=== PATIENT | female | born 1970 | race Caucasian/White ===

== ENCOUNTER 2021-04-19 13:14 | Inpatient (IN) | payer OTHER, SELFPAY ==
[2021-04-19] VITALS (31 sets, daily range): BP systolic 110–161; BP diastolic 65–94; PULSE 58–95; RESP 20–54; TEMP 36.4–37.3; O2SAT 86–100; BMI 23.1; BMI 24.1
--- NOTE | 2021-04-19 13:21 | DI.RAD.S_ITS ---
PROCEDURE: XR CHEST 1V INDICATIONS: flu-like symptoms TECHNIQUE: One view of the chest was acquired. COMPARISON: None. FINDINGS: Surgical changes and devices: None. Lungs and pleura: Bilateral mid and lower lung alveolar opacities. No effusion or pneumothorax. Mediastinum: Mediastinal contours appear normal. Heart size is normal. Bones and chest wall: No suspicious bony lesions. Overlying soft tissues appear unremarkable. IMPRESSION: 1. Bilateral alveolar opacities suggestive of pneumonia without pleural effusion. Dictated by: Clarissa Rob M.D. on 04/19/2021 at 14:17 Approved by: Clarissa Rob M.D. on 04/19/2021 at 14:17
--- NOTE | 2021-04-19 13:28 | ED_ITS ---
HPI - SOB/Dyspnea General Chief Complaint: Shortness of Breath/Dyspnea Stated Complaint: SOB Time Seen by Provider: 04/19/21 13:27 Source: patient and EMS Mode of arrival: EMS Limitations: no limitations History of Present Illness HPI Narrative: This is a 50-year-old female comes in with complaint of shortness of breath and chest pain. Patient has had about a week of symptoms she initially had temperatures about 101 or 102 F. She had some congestion and then had increasing shortness of breath. She states it is painful for her to take a deep breath in her anterior chest. She has not had any nausea or vomiting. She has not any diarrhea constipation. No urinary symptoms. No swelling her extremities. She is normally on fluvoxamine and levothyroxine. Patient states she has some reactive airway history but not a formal asthma diagnosis. No prior surgeries. No tobacco, occasional alcohol, no illicit. Her was recently ill with an upper respiratory illness he tested positive for COVID. She is unvaccinated. She has recently been on doxycycline as well as using budesonide inhaled and possibly oral dexamethasone. Related Data Home Medications Medication Instructions Recorded Confirmed albuterol sulfate 90 mcg/actuation 2 inh INHALATION Q6HR PRN 04/19/21 04/19/21 aerosol inhaler doxycycline hyclate 100 mg tablet 100 mg PO BID 04/19/21 04/19/21 fluvoxamine 50 mg tablet 50 mg PO BID 04/19/21 04/19/21 levothyroxine 50 mcg tablet 50 mcg PO QAM 04/19/21 04/19/21 (Synthroid) liothyronine 5 mcg tablet 5 mcg PO BID 04/19/21 04/19/21 Allergies Allergy/AdvReac Type Severity Reaction Status Date / Time cephalexin [From KEFLEX] Allergy Unknown Unverified 07/11/17 12:44 erythromycin base Allergy Unknown Verified 04/19/21 13:32 hydrocodone [From Vicodin] Allergy Unknown Verified 04/19/21 13:32 Iodine and Iodide Containing Allergy Unknown Verified 04/19/21 14:53 Produc [IODINE AND IODIDE CONTAINING PRODUC] latex [LATEX] Allergy Unknown Verified 04/19/21 14:53 Review of Systems Review of Systems ROS Unobtainable: All systems reviewed & are unremarkable except as noted in HPI and below Patient History Medical History Fibromyalgia Hypothyroid Reactive airway disease Social History household members: spouse and family Smoking Status: Never smoker Smoking Status: Never smoker alcohol intake frequency: 0-2 drinks per day Substance Use Type: does not use Exam Narrative Exam Narrative: GEN: well nourished, well appearing thin female, alert and oriented x 3, patient appears to be in mild distress. HEENT: Atraumatic, pupils are equal round reactive to light, extraocular movements are intact, nares are clear HEART: Regular rate and rhythm without murmur, clicks, rubs. LUNGS:Lungs has decreased breath sounds on the right lower lobe positive for tachypnea, no wheezes, rales, crackles, chest moves symmetrically, patient speaks in 2-3 word sentences. ABD:bowel sounds normal, soft, non-tender, no guarding, rebound, rigidity, no masses noted, no hepatosplenomegaly :No CVA tenderness MSCL: Non-tender, swelling bilateral lower extremities. NEURO:CN 2-12 intact, sensation normal SKIN: No rash, erythema or other skin changes noted. Initial Vital Signs Initial Vital Signs: Vital Signs Temperature 97.9 F 04/19/21 13:20 Pulse Rate 80 04/19/21 13:20 Respiratory Rate 40 H 04/19/21 13:20 Blood Pressure 134/88 04/19/21 13:20 Pulse Oximetry 86 L 04/19/21 13:20 Course Orders Ordered: ED Orders 04/19/21 13:02 C-Reactive Protein Quant Stat Complete Blood Count AUTO DIFF Stat Comprehensive Metabolic Panel Stat D Dimer Stat Ferritin Stat Lactate (Lactic Acid) Stat Lactate Dehydrogenase Stat NT-proBNP (BNP-Adult 18+) Stat Procalcitonin Stat Troponin & CK Cardiac Panel Stat 04/19/21 13:15 COVID19 -Nasal swab/Pre-Proc Stat 04/19/21 13:20 Arterial Blood Gas Stat 04/19/21 13:21 XR chest 1V Stat 04/19/21 13:32 EKG-12 Lead Stat 04/19/21 13:55 Blood Culture Stat 04/19/21 14:31 High flow/High humidity nasal NOW Acetaminophen (Acetaminophen 325 Mg Tablet) 650 mg PO Q6HR PRN PRN Reason: Fever/Mild Pain (1-3) Albuterol/Ipratropium (Albuterol/Ipratropium 3 Ml Ampul) 3 ml INH RTQ4HR PRN PRN Reason: Shortness Of Breath Dexamethasone (Dexamethasone 10 Mg/Ml Vial) 6 mg IV DAILY JESUS Enoxaparin Sodium (Enoxaparin 40 Mg/0.4 Ml Syringe) 40 mg SUBCUT BID JESUS Stored In Pharmacy 0 each PO PRN PRN PRN Reason: . Ondansetron HCl (Ondansetron 4 Mg/2 Ml Inj) 4 mg IV Q8HR PRN PRN Reason: Nausea And Vomiting Sodium Chloride (Sodium Chloride 0.9% Flush) 10 ml IV PRN PRN PRN Reason: Flush Sodium Chloride (Sodium Chloride 0.9% Flush) 10 ml IV BID JESUS Discontinued Medications Albuterol (Albuterol 2.5 Mg/3 Ml Neb (Adult)) 2.5 mg INH NOW ONE Stop: 04/19/21 15:42 Last Admin: 04/19/21 15:55 Dose: 2.5 mg Documented by: RASHAUN Dexamethasone (Dexamethasone 10 Mg/Ml Vial) 6 mg IV NOW ONE Stop: 04/19/21 15:05 Last Admin: 04/19/21 15:12 Dose: 6 mg Documented by: JESUS Consultations Consultation #1: Dr. Dickey accepts for inpatient admission. We did discuss at this time patient is currently refusing remdesivir. She was interested in monoclonal antibodies but I was unsure if patient would even be candidate. We did discuss and will start patient on dexamethasone which patient was agreeable to. She is currently on high-flow more for work of breathing she is maintaining her sats on 4 L. Vital Signs Vital signs: Vital Signs - 8 hr 04/19/21 13:20 04/19/21 13:22 04/19/21 13:30 Temperature 97.9 F Pulse Rate 80 85 81 Respiratory Rate 40 H 45 H 50 H Blood Pressure 134/88 141/94 H Pulse Oximetry 86 L 93 94 04/19/21 13:45 04/19/21 14:00 04/19/21 14:15 Temperature Pulse Rate 74 75 74 Respiratory Rate 44 H 45 H 35 H Blood Pressure 121/78 118/80 121/82 Pulse Oximetry 95 94 93 04/19/21 14:30 04/19/21 14:31 04/19/21 14:45 Temperature Pulse Rate 81 74 75 Respiratory Rate 38 H 35 H 40 H Blood Pressure 123/81 121/82 134/88 Pulse Oximetry 92 93 94 04/19/21 15:00 Temperature Pulse Rate 80 Respiratory Rate 54 H Blood Pressure 134/88 Pulse Oximetry 91 MDM - SOB/Dyspnea Lab Data Result diagrams: 04/19/21 13:02 04/19/21 13:02 Labs: Lab Results 04/19/21 04/19/21 04/19/21 Range/Units 13:02 13:02 13:02 WBC 9.2 (4.5-11.0) X10^3/uL RBC 4.06 (4.0-5.2) X10^6/uL Hgb 13.0 (12.0-16.0) g/dL Hct 36.8 (36-46) % MCV 90.9 (80-100) fL MCH 32.1 (26-34) PG MCHC 35.3 (30-36) % RDW 12.3 (11.6-14.8) % Plt Count 351 (150-400) X10^3/uL Neut % (Auto) 93.7 H (50-75) % Lymph % (Auto) 2.4 L (25-40) % [place] % (Auto) 3.7 (3-14) % Eos % (Auto) 0.0 L (2-4) % Baso % (Auto) 0.2 (0-2) % Neut # (Auto) 8600 H (2459-3624) /uL Lymph # (Auto) 200 L (0269-9845) /uL [place] # (Auto) 300 (0-900) /uL Eos # (Auto) 0 (0-450) /uL Baso # (Auto) 0 (0-100) /uL D-Dimer 592 H (<230) ng/mL ABG pH (7.35-7.45) ABG pCO2 (35-45) mmHg ABG pO2 (80-100) mmHg ABG HCO3 (22-26) mmol/L ABG Total CO2 (21-31) mmol/L ABG O2 Saturation (95-100) % ABG Base Excess (-2-2) mmol/L FiO2 Sodium (137-145) mmol/L Potassium (3.4-5.1) mmol/L Chloride (98-107) mmol/L Carbon Dioxide (22-32) mmol/L BUN (7-17) mg/dL Creatinine (0.52-1.04) mg/dL Estimated GFR (>60) mL/min BUN/Creatinine Ratio (6-22) Glucose (70-100) mg/dL Lactate (0.7-2.1) mmol/L Calcium (8.4-10.2) mg/dL Ferritin (6-137) ng/mL Total Bilirubin (0.2-1.3) mg/dL AST (14-36) IU/L ALT (<35) IU/L Alkaline Phosphatase (38-126) U/L Lactate Dehydrogenase (313-618) U/L Total Creatine Kinase (30-135) U/L CK-MB (CK-2) CK-MB (CK-2) Rel Index Troponin I (0.01-0.034) ng/mL C-Reactive Protein (<1.0) mg/dL NT-Pro-B Natriuret Pep (<125) pg/mL Total Protein (6.3-8.2) g/dL Albumin (3.5-5.0) g/dL Globulin (1.7-4.1) g/dL Albumin/Globulin Ratio (1.0-2.8) Procalcitonin 0.06 (<0.5) ng/mL SARS-CoV-2 (PCR) (Negative) 04/19/21 04/19/21 04/19/21 Range/Units 13:02 13:02 13:15 WBC (4.5-11.0) X10^3/uL RBC (4.0-5.2) X10^6/uL Hgb (12.0-16.0) g/dL Hct (36-46) % MCV (80-100) fL MCH (26-34) PG MCHC (30-36) % RDW (11.6-14.8) % Plt Count (150-400) X10^3/uL Neut % (Auto) (50-75) % Lymph % (Auto) (25-40) % [place] % (Auto) (3-14) % Eos % (Auto) (2-4) % Baso % (Auto) (0-2) % Neut # (Auto) (4258-8250) /uL Lymph # (Auto) (3332-4834) /uL [place] # (Auto) (0-900) /uL Eos # (Auto) (0-450) /uL Baso # (Auto) (0-100) /uL D-Dimer (<230) ng/mL ABG pH (7.35-7.45) ABG pCO2 (35-45) mmHg ABG pO2 (80-100) mmHg ABG HCO3 (22-26) mmol/L ABG Total CO2 (21-31) mmol/L ABG O2 Saturation (95-100) % ABG Base Excess (-2-2) mmol/L FiO2 Sodium 134 L (137-145) mmol/L Potassium 3.6 (3.4-5.1) mmol/L Chloride 101 (98-107) mmol/L Carbon Dioxide 24 (22-32) mmol/L BUN 17 (7-17) mg/dL Creatinine 0.71 (0.52-1.04) mg/dL Estimated GFR > 60.0 (>60) mL/min BUN/Creatinine Ratio 23.9 H (6-22) Glucose 113 H (70-100) mg/dL Lactate 2.9 H (0.7-2.1) mmol/L Calcium 9.4 (8.4-10.2) mg/dL Ferritin 421 H (6-137) ng/mL Total Bilirubin 0.3 (0.2-1.3) mg/dL AST 57 H (14-36) IU/L ALT 36 H (<35) IU/L Alkaline Phosphatase 85 (38-126) U/L Lactate Dehydrogenase 919 H (313-618) U/L Total Creatine Kinase 42 (30-135) U/L CK-MB (CK-2) TNP CK-MB (CK-2) Rel Index TNP Troponin I < 0.012 (0.01-0.034) ng/mL C-Reactive Protein 13.7 H (<1.0) mg/dL NT-Pro-B Natriuret Pep 213 H (<125) pg/mL Total Protein 7.1 (6.3-8.2) g/dL Albumin 3.7 (3.5-5.0) g/dL Globulin 3.4 (1.7-4.1) g/dL Albumin/Globulin Ratio 1.1 (1.0-2.8) Procalcitonin (<0.5) ng/mL SARS-CoV-2 (PCR) Positive H (Negative) 04/19/21 Range/Units 13:20 WBC (4.5-11.0) X10^3/uL RBC (4.0-5.2) X10^6/uL Hgb (12.0-16.0) g/dL Hct (36-46) % MCV (80-100) fL MCH (26-34) PG MCHC (30-36) % RDW (11.6-14.8) % Plt Count (150-400) X10^3/uL Neut % (Auto) (50-75) % Lymph % (Auto) (25-40) % [place] % (Auto) (3-14) % Eos % (Auto) (2-4) % Baso % (Auto) (0-2) % Neut # (Auto) (6340-3718) /uL Lymph # (Auto) (4886-4434) /uL [place] # (Auto) (0-900) /uL Eos # (Auto) (0-450) /uL Baso # (Auto) (0-100) /uL D-Dimer (<230) ng/mL ABG pH 7.45 (7.35-7.45) ABG pCO2 34.0 L (35-45) mmHg ABG pO2 71 L (80-100) mmHg ABG HCO3 24 (22-26) mmol/L ABG Total CO2 25 (21-31) mmol/L ABG O2 Saturation 95 (95-100) % ABG Base Excess 0.0 (-2-2) mmol/L FiO2 39 Sodium (137-145) mmol/L Potassium (3.4-5.1) mmol/L Chloride (98-107) mmol/L Carbon Dioxide (22-32) mmol/L BUN (7-17) mg/dL Creatinine (0.52-1.04) mg/dL Estimated GFR (>60) mL/min BUN/Creatinine Ratio (6-22) Glucose (70-100) mg/dL Lactate (0.7-2.1) mmol/L Calcium (8.4-10.2) mg/dL Ferritin (6-137) ng/mL Total Bilirubin (0.2-1.3) mg/dL AST (14-36) IU/L ALT (<35) IU/L Alkaline Phosphatase (38-126) U/L Lactate Dehydrogenase (313-618) U/L Total Creatine Kinase (30-135) U/L CK-MB (CK-2) CK-MB (CK-2) Rel Index Troponin I (0.01-0.034) ng/mL C-Reactive Protein (<1.0) mg/dL NT-Pro-B Natriuret Pep (<125) pg/mL Total Protein (6.3-8.2) g/dL Albumin (3.5-5.0) g/dL Globulin (1.7-4.1) g/dL Albumin/Globulin Ratio (1.0-2.8) Procalcitonin (<0.5) ng/mL SARS-CoV-2 (PCR) (Negative) ABG Data ABG results: Patient's ABG shows mild alkalosis. PO2 is 71. Imaging Data Chest x-ray: Radiologist's Impression: [place] [address] XRay Report Signed Patient: Yesica Albrecht MR#: [id number] : 1970 Acct:[id number] Age/Sex: 50 / F Date of Service: 04/19/21 Loc: ED Accession Number: [id number] ?? Procedure: XR chest 1V Ordering Provider: Mitzi Thomas D.O. PROCEDURE:? XR CHEST 1V ? INDICATIONS:? flu-like symptoms ? TECHNIQUE:? One view of the chest was acquired.? ? COMPARISON:? None. ? FINDINGS:? ? Surgical changes and devices:? None.? ? Lungs and pleura:? Bilateral mid and lower lung alveolar opacities.? No effusion or pneumothorax. ? Mediastinum:? Mediastinal contours appear normal.? Heart size is normal.? ? Bones and chest wall:? No suspicious bony lesions.? Overlying soft tissues appear unremarkable.? ? IMPRESSION:? 1. Bilateral alveolar opacities suggestive of pneumonia without pleural effusion.? ? ? Dictated by: Clarissa Rob M.D. on 04/19/2021 at 14:17 ? ? Approved by: Clarissa Rob M.D. on 04/19/2021 at 14:17?? ECG Data Attestation: I personally reviewed and interpreted this ECG as follows: Prior ECG tracings: not available for review Interpretation: Sinus rhythm rate of 78 WA 142 QRS [address]TC [address] No acute ST elevation depression noted. No S1Q3T3. No priors available. MDM Narrative Medical decision making narrative: This is a 50-year-old unvaccinated female with reactive airway disease history patient has had about 10 days of symptoms. She has had fevers initially, increasing chest pain and shortness of breath. Patient is hypoxic upon arrival 86% on room air she is tachypneic and has significant work of breathing. Patient responded well to 4 L nasal cannula but continues to have quite a bit of work of breathing. COVID swab is positive, patient has chest x-ray findings consistent with pneumonia. D-dimer slightly elevated, she does not appear to have any renal dysfunction, troponin is negative. EKG does not show acute changes and patient is not tachycardic. She is open to dexamethasone and had been on 4 days of oral dexamethasone. She is reluctant to take remdesivir. Discussed with hospitalist who accepts and will continue the discussion regarding medication options. Patient was switched over to high-flow for her work of breathing. Critical Care Time Critical Care Time Critical Care Time: Yes Total Critical Care Time: 35 Attestation: The high probability of a clinically significant, sudden or life threatening deterioration of the [cardiac, pulm] system(s) required my full and direct attention, intervention and personal management. The aggregate critical care time was [] minutes. This time is in addition to time spent performing reported procedures but includes the following: [x] Data Review and interpretation [x] Patient assessment and monitoring of vital signs [x] Documentation [x] Medication orders and management Discharge Plan Departure Patient Disposition: Admitted As Inpatient Clinical Impression: 2019 novel coronavirus-infected pneumonia (NCIP), Acute respiratory failure with hypoxia Admit Date/Time: 04/19/21 15:08 Admit Provider: Aamir Dickey
[2021-04-19 13:30] LABS: Add Manual Diff / Slide Review NO; Basophils Absolute Auto 0 /uL (0-100); Basophils Percent Auto 0.2 % (0-2); Eosinophils Absolute Auto 0 /uL (0-450); Hematocrit 36.8 % (36-46); Lymphocytes Absolute Auto 200 /uL (1100-4500); Lymphocytes Percent Auto 2.4 % (25-40); Mean Corpuscular HGB Conc 35.3 % (30-36); Mean Corpuscular Hemoglobin 32.1 PG (26-34); Mean Corpuscular Volume 90.9 fL (80-100); Monocytes Absolute Auto 300 /uL (0-900); Monocytes Percent Auto 3.7 % (3-14); Neutrophils Absolute Auto 8600 /uL (1500-7000); Neutrophils Percent Auto 93.7 % (50-75); Platelet Count 351 X10^3/uL (150-400); Red Blood Cell Count 4.06 X10^6/uL (4.0-5.2); Red Cell Distribution Width 12.3 % (11.6-14.8); White Blood Cell Count 9.2 X10^3/uL (4.5-11.0)
[2021-04-19 13:40] LABS: D Dimer 592 ng/mL (<230)
[2021-04-19 13:42] LABS: Lactate (Lactic Acid) 2.9 mmol/L (0.7-2.1)
[2021-04-19 13:46] LABS: Alanine Aminotransferase 36 IU/L (<35); Albumin 3.7 g/dL (3.5-5.0); Albumin Globulin Ratio 1.1 (1.0-2.8); Alkaline Phosphatase 85 U/L (38-126); Aspartate Aminotransferase 57 IU/L (14-36); BUN Creatinine Ratio 23.9 (6-22); Bilirubin Total 0.3 mg/dL (0.2-1.3); Blood Urea Nitrogen 17 mg/dL (7-17); Calcium 9.4 mg/dL (8.4-10.2); Carbon Dioxide 24 mmol/L (22-32); Chloride 101 mmol/L (98-107); Creatine Kinase 42 U/L (30-135); Estimated Glomerular Filt Rate > 60.0 mL/min (>60); Globulin 3.4 g/dL (1.7-4.1); Glucose 113 mg/dL (70-100); HEMOLYSIS < 15 (0-50); Lactate Dehydrogenase 919 U/L (313-618); Potassium 3.6 mmol/L (3.4-5.1); Sodium 134 mmol/L (137-145); Total Protein 7.1 g/dL (6.3-8.2)
[2021-04-19 13:56] LABS: C-Reactive Protein Quant 13.7 mg/dL (<1.0)
[2021-04-19 13:58] LABS: NT-proBNP (BNP-Adult 18+) 213 pg/mL (<125); Troponin I < 0.012 ng/mL (0.01-0.034)
[2021-04-19 14:03] LABS: COVID19 -Nasal RAPID POSITIVE (Negative)
[2021-04-19 14:03] LABS: Procalcitonin 0.06 ng/mL (<0.5)
[2021-04-19 14:20] LABS: Ferritin 421 ng/mL (6-137)
--- NOTE | 2021-04-19 14:28 | PC.NURSE ---
Pt informed of positive covid. Pt states she does not want to be admitted. Informed that because of her low oxygen levels on room air that would be very dangerous and may result in worsening condition and / or . Pt states she will be admitted but does not want to go on a ventilator. I informed her that we were doing everything possible to ensure she does not go on a ventilator. I reviewed typical care of covid with her. She states she does not want Remdesivir. I told her the doctor would discus it with her.
[2021-04-19 14:51] LABS: Fractionated Inspired Oxygen 39; HCO3 ABG 24 mmol/L (22-26); Oxygen Saturation ABG 95 % (95-100); PO2 ABG 71 mmHg (80-100); TCO2 ABG 25 mmol/L (21-31); pH ABG 7.45 (7.35-7.45)
[2021-04-19] MEDS: DEXAMETHASONE 10 MG/ML VIAL 6 MG IV (15:12)
[2021-04-19 15:22] LABS: Reflexed Lactate in 2 Hours Y
[2021-04-19] MEDS: ALBUTEROL 2.5 MG/3 ML NEB (ADULT) INH (15:55)
[2021-04-19 17:48] LABS: Lactate 2HR (Lactic Acid Rflx) 1.5 mmol/L (0.7-2.1)
--- NOTE | 2021-04-19 17:49 | P.HP_ITS ---
History of Present Illness History of Present Illness Date Patient Seen: 04/19/21 Time Patient Seen: 16:00 Chief complaint: SOB Narrative: Ms. Zelalem Cordova is a 50W with PMH reactive airway disease, hypothyroidism who comes to the hospital with shortness of breath. She notes she has had nearly two weeks of symptoms. Sh previous had fever, congestion, cough. No she is having worsening shortness of breath, and pain with taking a deep breath. No nausea/vomiting. No diarrhea, No urinary symptoms. Not producing much phlegm. No edema. She has reactive airway disease, but does not need inhalers. She has family ill with COVID, she has not been vaccinated. She has been recently prescribed antibiotics, and possibly using budesonide and dexamethasone. In the ED workup was done she had temp of 97.9, hr 80, rr 40, bp 130s/80s, o2 sat 86%. She was placed on nasal cannula oxygen. She continued to have high work of breathing was placed on heated high flow. Labs notable for WBC 9.2, d-dimer 592, procal 0.06, creatinine 0.71, lactate 2.9, trop negative, ldh 919, ferritin 421. COVID positive. Chest xray showed bilateral opacities. She was ordered for dexamethasone, she declined remdesivir. She was admitted for further treatment. SH: no smoking, drinking FH: no pulmonary disease, with COVID Patient History Medical History Fibromyalgia Hypothyroid Reactive airway disease Family & Social History Safety & Behavioral: Feels Safe in Current Yes Environment Been Physically Hurt or No Threatened By a Person Tobacco & Substance use: Smoking Status Never smoker alcohol intake frequency 0-2 drinks per day Substance Use Type does not use Meds Home Medications and Allergies Home Medications Medication Instructions Recorded Confirmed Type albuterol sulfate 90 mcg/actuation 2 inh INHALATION Q6HR PRN 04/19/21 04/19/21 History aerosol inhaler doxycycline hyclate 100 mg tablet 100 mg PO BID 04/19/21 04/19/21 History fluvoxamine 50 mg tablet 50 mg PO BID 04/19/21 04/19/21 History levothyroxine 50 mcg tablet 50 mcg PO QAM 04/19/21 04/19/21 History (Synthroid) liothyronine 5 mcg tablet 5 mcg PO BID 04/19/21 04/19/21 History Allergies Allergy/AdvReac Type Severity Reaction Status Date / Time cephalexin [From KEFLEX] Allergy Unknown Unverified 07/11/17 12:44 erythromycin base Allergy Unknown Verified 04/19/21 13:32 hydrocodone [From Vicodin] Allergy Unknown Verified 04/19/21 13:32 Iodine and Iodide Containing Allergy Unknown Verified 04/19/21 14:53 Produc [IODINE AND IODIDE CONTAINING PRODUC] latex [LATEX] Allergy Unknown Verified 04/19/21 14:53 Review of Systems Review of Systems Narrative: 14 systems reviewed and negative aside from what is noted in HPI Exam Vital Signs (past 8 hours): - 04/19/21 13:20 04/19/21 13:22 04/19/21 13:30 Temperature 97.9 F Pulse Rate 80 85 81 Respiratory Rate 40 H 45 H 50 H Blood Pressure 134/88 141/94 H Pulse Oximetry 86 L 93 94 04/19/21 13:45 04/19/21 14:00 04/19/21 14:15 Temperature Pulse Rate 74 75 74 Respiratory Rate 44 H 45 H 35 H Blood Pressure 121/78 118/80 121/82 Pulse Oximetry 95 94 93 04/19/21 14:30 04/19/21 14:31 04/19/21 14:45 Temperature Pulse Rate 81 74 75 Respiratory Rate 38 H 35 H 40 H Blood Pressure 123/81 121/82 134/88 Pulse Oximetry 92 93 94 04/19/21 15:00 04/19/21 15:15 04/19/21 15:16 Temperature Pulse Rate 80 81 83 Respiratory Rate 54 H 46 H 53 H Blood Pressure 134/88 133/90 Pulse Oximetry 91 93 91 04/19/21 15:30 04/19/21 15:45 04/19/21 16:00 Temperature Pulse Rate 86 80 79 Respiratory Rate 51 H 21 48 H Blood Pressure 140/92 H 132/92 H 124/87 Pulse Oximetry 92 92 91 04/19/21 16:03 04/19/21 16:14 04/19/21 16:15 Temperature Pulse Rate 76 78 75 Respiratory Rate 24 39 H 39 H Blood Pressure 122/78 Pulse Oximetry 93 94 95 04/19/21 16:30 04/19/21 16:55 04/19/21 16:57 Temperature 97.6 F Pulse Rate 77 73 Respiratory Rate 22 30 H Blood Pressure 133/86 133/86 Pulse Oximetry 100 96 94 04/19/21 17:00 Temperature Pulse Rate 74 Respiratory Rate 27 H Blood Pressure 133/86 Pulse Oximetry 97 Fraction of Inspired Oxygen 0.50 Oxygen Delivery Method High Flow Nasal Cannula Oxygen Flow Rate 30 Narrative Exam Narrative: GEN: moderate respiratory distress HEENT: moist mucous membranes, PERRL NECK: trachea midline, no JVD CV: regular rate and rhythm, no murmurs PULM: very diminished breath sounds bilaterally ABD: soft, nontender, nondistended, no organomegaly, normal bowel sounds EXT: warm and well perfused with no edema NEURO: awake, alert oriented PSYCH: pleasant SKIN: no rashes Objective Labs Result Diagrams: 04/19/21 13:02 04/19/21 13:02 Labs: Laboratory Results - last 24 hr 04/19/21 04/19/21 04/19/21 13:02 13:02 13:02 WBC 9.2 RBC 4.06 Hgb 13.0 Hct 36.8 MCV 90.9 MCH 32.1 MCHC 35.3 RDW 12.3 Plt Count 351 Neut % (Auto) 93.7 H Lymph % (Auto) 2.4 L [place] % (Auto) 3.7 Eos % (Auto) 0.0 L Baso % (Auto) 0.2 Neut # (Auto) 8600 H Lymph # (Auto) 200 L [place] # (Auto) 300 Eos # (Auto) 0 Baso # (Auto) 0 D-Dimer 592 H ABG pH ABG pCO2 ABG pO2 ABG HCO3 ABG Total CO2 ABG O2 Saturation ABG Base Excess FiO2 Sodium Potassium Chloride Carbon Dioxide BUN Creatinine Estimated GFR BUN/Creatinine Ratio Glucose Lactate Calcium Ferritin Total Bilirubin AST ALT Alkaline Phosphatase Lactate Dehydrogenase Total Creatine Kinase CK-MB (CK-2) CK-MB (CK-2) Rel Index Troponin I C-Reactive Protein NT-Pro-B Natriuret Pep Total Protein Albumin Globulin Albumin/Globulin Ratio Procalcitonin 0.06 SARS-CoV-2 (PCR) 04/19/21 04/19/21 04/19/21 13:02 13:02 13:15 WBC RBC Hgb Hct MCV MCH MCHC RDW Plt Count Neut % (Auto) Lymph % (Auto) [place] % (Auto) Eos % (Auto) Baso % (Auto) Neut # (Auto) Lymph # (Auto) [place] # (Auto) Eos # (Auto) Baso # (Auto) D-Dimer ABG pH ABG pCO2 ABG pO2 ABG HCO3 ABG Total CO2 ABG O2 Saturation ABG Base Excess FiO2 Sodium 134 L Potassium 3.6 Chloride 101 Carbon Dioxide 24 BUN 17 Creatinine 0.71 Estimated GFR > 60.0 BUN/Creatinine Ratio 23.9 H Glucose 113 H Lactate 2.9 H Calcium 9.4 Ferritin 421 H Total Bilirubin 0.3 AST 57 H ALT 36 H Alkaline Phosphatase 85 Lactate Dehydrogenase 919 H Total Creatine Kinase 42 CK-MB (CK-2) TNP CK-MB (CK-2) Rel Index TNP Troponin I < 0.012 C-Reactive Protein 13.7 H NT-Pro-B Natriuret Pep 213 H Total Protein 7.1 Albumin 3.7 Globulin 3.4 Albumin/Globulin Ratio 1.1 Procalcitonin SARS-CoV-2 (PCR) Positive H 04/19/21 13:20 WBC RBC Hgb Hct MCV MCH MCHC RDW Plt Count Neut % (Auto) Lymph % (Auto) [place] % (Auto) Eos % (Auto) Baso % (Auto) Neut # (Auto) Lymph # (Auto) [place] # (Auto) Eos # (Auto) Baso # (Auto) D-Dimer ABG pH 7.45 ABG pCO2 34.0 L ABG pO2 71 L ABG HCO3 24 ABG Total CO2 25 ABG O2 Saturation 95 ABG Base Excess 0.0 FiO2 39 Sodium Potassium Chloride Carbon Dioxide BUN Creatinine Estimated GFR BUN/Creatinine Ratio Glucose Lactate Calcium Ferritin Total Bilirubin AST ALT Alkaline Phosphatase Lactate Dehydrogenase Total Creatine Kinase CK-MB (CK-2) CK-MB (CK-2) Rel Index Troponin I C-Reactive Protein NT-Pro-B Natriuret Pep Total Protein Albumin Globulin Albumin/Globulin Ratio Procalcitonin SARS-CoV-2 (PCR) Assessment & Plan Assessment & Plan narrative: Ms. Zelalem Cordova is a 50W with PMH reactive airway disease, hypothyroid who presents with acute respiratory failure from covid pneumonia. 1. Acute hypoxemic respiratory failure from COVID pneumonia -patient is unfortunately unvaccinated -declines remdesivir -ordered baricitinib, dexamethasone -transferred to ICU as she is on heated high flow -has history of reactive airway disease, ordered for nebs -consult to [employer] -ordered for lovenox for dvt ppx 2. Hypothyroidism -continue home medications CODE: Full Proxy: Lefty Cordova, I have utilized all available resources to reconcile the patient's home medications. Time Spent With Patient Critical Care time: I spent a total of 35 minutes of critical care time on this patient's care today; this time is exclusive of procedural time. Quality MIPS - Admit I confirm the patient?s Advance Care Plan is present, Code status is documented, Surrogate decision maker is in patient?s record [If Yes, STOP here]: Yes
--- NOTE | 2021-04-19 19:17 | PC.NURSE ---
Admit Note-Patient brought to ICU room 230, A/Ox4, fatigued, able to transfer steadily to bed and BSC. On HHF 30L/50%, RR 30s, SpO2 >93%, only desats to 87% during activity, lung sounds slightly coarse, occasional dry cough. SR, VSS. Intercept TeleICU green button in room activated at 1745, no response.
--- NOTE | 2021-04-19 20:35 | P.TELICUCN_ITS ---
History of Present Illness Consult details Chief complaint: SOB :: This patient was seen via real time interactive two-way audiovisual telecommunication. Narrative: Patient is a 50 year old female with history of reactive airway disease presents with shortness of breath. She was diagnosed with COVID-19 about a couple of weeks ago and noticed increased difficulty breathing over the last couple of days. On admission she was found to be hypoxemia. Started on HFNC 45/50%. Refused remdesivir and started on baricitinib and decadron. [facility] Medical History Fibromyalgia Hypothyroid Reactive airway disease Social History household members: spouse and family Smoking Status: Never smoker Current Medications Current Medications Medications: Home Medications albuterol sulfate 90 mcg/actuation aerosol inhaler 2 inh INHALATION Q6HR PRN 04/19/21 [History Confirmed 04/19/21] doxycycline hyclate 100 mg tablet 100 mg PO BID 04/19/21 [History Confirmed 04/19/21] fluvoxamine 50 mg tablet 50 mg PO BID 04/19/21 [History Confirmed 04/19/21] levothyroxine 50 mcg tablet (Synthroid) 50 mcg PO QAM 04/19/21 [History Confirmed 04/19/21] liothyronine 5 mcg tablet 5 mcg PO BID 04/19/21 [History Confirmed 04/19/21] Exam Vital Signs (past 8 hours): - 04/19/21 13:20 04/19/21 13:22 04/19/21 13:30 Temperature 97.9 F Pulse Rate 80 85 81 Respiratory Rate 40 H 45 H 50 H Blood Pressure 134/88 141/94 H Pulse Oximetry 86 L 93 94 04/19/21 13:45 04/19/21 14:00 04/19/21 14:15 Temperature Pulse Rate 74 75 74 Respiratory Rate 44 H 45 H 35 H Blood Pressure 121/78 118/80 121/82 Pulse Oximetry 95 94 93 04/19/21 14:30 04/19/21 14:31 04/19/21 14:45 Temperature Pulse Rate 81 74 75 Respiratory Rate 38 H 35 H 40 H Blood Pressure 123/81 121/82 134/88 Pulse Oximetry 92 93 94 04/19/21 15:00 04/19/21 15:15 04/19/21 15:16 Temperature Pulse Rate 80 81 83 Respiratory Rate 54 H 46 H 53 H Blood Pressure 134/88 133/90 Pulse Oximetry 91 93 91 04/19/21 15:30 04/19/21 15:45 04/19/21 16:00 Temperature Pulse Rate 86 80 79 Respiratory Rate 51 H 21 48 H Blood Pressure 140/92 H 132/92 H 124/87 Pulse Oximetry 92 92 91 04/19/21 16:03 04/19/21 16:14 04/19/21 16:15 Temperature Pulse Rate 76 78 75 Respiratory Rate 24 39 H 39 H Blood Pressure 122/78 Pulse Oximetry 93 94 95 04/19/21 16:30 04/19/21 16:55 04/19/21 16:57 Temperature 97.6 F Pulse Rate 77 73 Respiratory Rate 22 30 H Blood Pressure 133/86 133/86 Pulse Oximetry 100 96 94 04/19/21 17:00 04/19/21 18:00 Temperature Pulse Rate 74 76 Respiratory Rate 27 H 35 H Blood Pressure 133/86 119/74 Pulse Oximetry 97 95 Fraction of Inspired Oxygen 0.50 Oxygen Delivery Method Heated High Flow Oxygen Flow Rate 30 Objective Labs Result Diagrams: 04/19/21 13:02 04/19/21 13:02 Labs: Laboratory Results - last 24 hr 04/19/21 04/19/21 04/19/21 13:02 13:02 13:02 WBC 9.2 RBC 4.06 Hgb 13.0 Hct 36.8 MCV 90.9 MCH 32.1 MCHC 35.3 RDW 12.3 Plt Count 351 Neut % (Auto) 93.7 H Lymph % (Auto) 2.4 L [place] % (Auto) 3.7 Eos % (Auto) 0.0 L Baso % (Auto) 0.2 Neut # (Auto) 8600 H Lymph # (Auto) 200 L [place] # (Auto) 300 Eos # (Auto) 0 Baso # (Auto) 0 D-Dimer 592 H ABG pH ABG pCO2 ABG pO2 ABG HCO3 ABG Total CO2 ABG O2 Saturation ABG Base Excess FiO2 Sodium Potassium Chloride Carbon Dioxide BUN Creatinine Estimated GFR BUN/Creatinine Ratio Glucose Lactate Calcium Ferritin Total Bilirubin AST ALT Alkaline Phosphatase Lactate Dehydrogenase Total Creatine Kinase CK-MB (CK-2) CK-MB (CK-2) Rel Index Troponin I C-Reactive Protein NT-Pro-B Natriuret Pep Total Protein Albumin Globulin Albumin/Globulin Ratio Procalcitonin 0.06 Nasal Screen MRSA (PCR) SARS-CoV-2 (PCR) 04/19/21 04/19/21 04/19/21 13:02 13:02 13:15 WBC RBC Hgb Hct MCV MCH MCHC RDW Plt Count Neut % (Auto) Lymph % (Auto) [place] % (Auto) Eos % (Auto) Baso % (Auto) Neut # (Auto) Lymph # (Auto) [place] # (Auto) Eos # (Auto) Baso # (Auto) D-Dimer ABG pH ABG pCO2 ABG pO2 ABG HCO3 ABG Total CO2 ABG O2 Saturation ABG Base Excess FiO2 Sodium 134 L Potassium 3.6 Chloride 101 Carbon Dioxide 24 BUN 17 Creatinine 0.71 Estimated GFR > 60.0 BUN/Creatinine Ratio 23.9 H Glucose 113 H Lactate 2.9 H Calcium 9.4 Ferritin 421 H Total Bilirubin 0.3 AST 57 H ALT 36 H Alkaline Phosphatase 85 Lactate Dehydrogenase 919 H Total Creatine Kinase 42 CK-MB (CK-2) TNP CK-MB (CK-2) Rel Index TNP Troponin I < 0.012 C-Reactive Protein 13.7 H NT-Pro-B Natriuret Pep 213 H Total Protein 7.1 Albumin 3.7 Globulin 3.4 Albumin/Globulin Ratio 1.1 Procalcitonin Nasal Screen MRSA (PCR) SARS-CoV-2 (PCR) Positive H 04/19/21 04/19/21 04/19/21 13:20 16:30 17:20 WBC RBC Hgb Hct MCV MCH MCHC RDW Plt Count Neut % (Auto) Lymph % (Auto) [place] % (Auto) Eos % (Auto) Baso % (Auto) Neut # (Auto) Lymph # (Auto) [place] # (Auto) Eos # (Auto) Baso # (Auto) D-Dimer ABG pH 7.45 ABG pCO2 34.0 L ABG pO2 71 L ABG HCO3 24 ABG Total CO2 25 ABG O2 Saturation 95 ABG Base Excess 0.0 FiO2 39 Sodium Potassium Chloride Carbon Dioxide BUN Creatinine Estimated GFR BUN/Creatinine Ratio Glucose Lactate 1.5 Calcium Ferritin Total Bilirubin AST ALT Alkaline Phosphatase Lactate Dehydrogenase Total Creatine Kinase CK-MB (CK-2) CK-MB (CK-2) Rel Index Troponin I C-Reactive Protein NT-Pro-B Natriuret Pep Total Protein Albumin Globulin Albumin/Globulin Ratio Procalcitonin Nasal Screen MRSA (PCR) Negative for mrsa SARS-CoV-2 (PCR) Assessment & Plan Assessment & Plan narrative: NEURO: # Anxiety -- Start xanax as needed for anxiety RESP: # Acute hypoxemia respiratory failure -- Secondary to COVID pneumonia -- COVID rx as below -- Start gentle diuresis -- On HFNC 45/50% -- RT to titrate down FiO2 and flow to maintain goal SpO2 > 90% -- Difficult to self prone due to fibromyalgia but agreeable to turn side to side. -- Encourage early ambulation as tolerated to prevent atelectasis ID: # COVID PNA -- Trend CRP, LDH, ferritin, and LFTs -- On baricitinib and decadron -- Start gentle diuresis to seek net negative fluid balance -- Check venous duplex -- On strict contact, droplet/airborne, eye protection, and critical meticulous hand hygiene ENDO: -- Goal BS < 180 D/w RN at beside. Time Spent With Patient Critical Care time: I spent a total of [] minutes of critical care time on this patient's care today; this time is exclusive of procedural time.
[2021-04-19] MEDS: ALPRAZolam 0.25 MG TABLET PO (21:17)
[2021-04-19] MEDS: ACETAMINOPHEN 325 MG TABLET 650 MG PO (21:17)
[2021-04-19] MEDS: SODIUM CHLORIDE 0.9% FLUSH 10 ML IV (21:17)
[2021-04-19] MEDS: ENOXAPARIN 40 MG/0.4 ML SYRINGE SUBCUT (21:17)
[2021-04-20] VITALS (43 sets, daily range): BP systolic 108–142; BP diastolic 66–84; PULSE 55–80; RESP 0–44; TEMP 36.4–37; O2SAT 89–99
--- NOTE | 2021-04-20 | DI.RAD.S_ITS ---
PROCEDURE: XR CHEST 1V INDICATIONS: intubated, tube placement TECHNIQUE: One view of the chest was acquired. COMPARISON: [facility], CR, XR CHEST 1V, 04/19/2021, 13:30. FINDINGS: Surgical changes and devices: None. Lungs and pleura: Persistent but improved appearance of bilateral mid and lower lung opacities. No pneumothorax. No pleural effusion. Mediastinum: Mediastinal contours appear normal. Heart size is normal. Bones and chest wall: No suspicious bony lesions. Overlying soft tissues appear unremarkable. IMPRESSION: Persistent but improved appearance of bilateral mid and lower lung zone airspace opacities consistent with multifocal pneumonia. Dictated by: Jermain Grace M.D. on 04/20/2021 at 10:11 Approved by: Jermain Grace M.D. on 04/20/2021 at 10:13
[2021-04-20] MEDS: IBUPROFEN 600 MG TABLET PO ×3 (02:23→22:07)
[2021-04-20 04:56] LABS: Add Manual Diff / Slide Review NO; Basophils Absolute Auto 0 /uL (0-100); Basophils Percent Auto 0.1 % (0-2); Eosinophils Absolute Auto 0 /uL (0-450); Hematocrit 35.3 % (36-46); Hemoglobin 12.3 g/dL (12.0-16.0); Lymphocytes Absolute Auto 300 /uL (1100-4500); Lymphocytes Percent Auto 2.3 % (25-40); Mean Corpuscular HGB Conc 34.7 % (30-36); Mean Corpuscular Hemoglobin 31.8 PG (26-34); Mean Corpuscular Volume 91.4 fL (80-100); Monocytes Absolute Auto 300 /uL (0-900); Monocytes Percent Auto 2.5 % (3-14); Neutrophils Absolute Auto 12400 /uL (1500-7000); Neutrophils Percent Auto 95.1 % (50-75); Platelet Count 343 X10^3/uL (150-400); Red Blood Cell Count 3.86 X10^6/uL (4.0-5.2); Red Cell Distribution Width 12.6 % (11.6-14.8); White Blood Cell Count 13.1 X10^3/uL (4.5-11.0)
[2021-04-20] MEDS: SODIUM CHLORIDE 0.9% FLUSH 10 ML IV ×2 (08:54→21:18)
[2021-04-20] MEDS: FUROSEMIDE 20 MG/2 ML VIAL IV ×2 (08:54→21:17)
[2021-04-20] MEDS: ENOXAPARIN 40 MG/0.4 ML SYRINGE SUBCUT ×2 (08:54→21:17)
[2021-04-20] MEDS: DEXAMETHASONE 10 MG/ML VIAL 6 MG IV (08:54)
[2021-04-20] MEDS: BARICITINIB 2 MG TABLET 4 MG PO (08:54)
[2021-04-20] MEDS: ALPRAZolam 0.25 MG TABLET PO ×3 (09:28→21:17)
[2021-04-20] MEDS: LIOTHYRONINE 5 MCG TABLET PO ×2 (10:51→21:18)
[2021-04-20] MEDS: LEVOTHYROXINE 50 MCG TABLET PO (10:51)
[2021-04-20] MEDS: SODIUM CHLORIDE NASAL SPRAY 1 SPRAY NASAL (10:51)
--- NOTE | 2021-04-20 10:59 | P.TELICUPN_ITS ---
Subjective Subjective :: This patient was seen via real time interactive two-way audiovisual telecommunication. Current Medications Current Medications Medications: Home Medications albuterol sulfate 90 mcg/actuation aerosol inhaler 2 inh INHALATION Q6HR PRN 04/19/21 [History Confirmed 04/19/21] doxycycline hyclate 100 mg tablet 100 mg PO BID 04/19/21 [History Confirmed 04/19/21] fluvoxamine 50 mg tablet 50 mg PO BID 04/19/21 [History Confirmed 04/19/21] levothyroxine 50 mcg tablet (Synthroid) 50 mcg PO QAM 04/19/21 [History Confirmed 04/19/21] liothyronine 5 mcg tablet 5 mcg PO BID 04/19/21 [History Confirmed 04/19/21] Visit Medications (administered) Generic Name Dose Route Start Last Admin Trade Name Freq PRN Reason Stop Dose Admin Acetaminophen 650 mg 04/19/21 16:41 04/19/21 21:17 Acetaminophen 325 Mg Tablet PO 650 mg Q6HR PRN Administration Fever/Mild Pain (1-3) Alprazolam 0.25 mg 04/19/21 20:37 04/20/21 09:28 Alprazolam 0.25 Mg Tablet PO 0.25 mg Q6H PRN Administration Anxiety Dexamethasone 6 mg 04/20/21 09:00 04/20/21 08:54 Dexamethasone 10 Mg/Ml Vial IV 6 mg DAILY JESUS Administration Enoxaparin Sodium 40 mg 04/19/21 21:00 04/20/21 08:54 Enoxaparin 40 Mg/0.4 Ml Syringe SUBCUT 40 mg BID JESUS Administration Furosemide 20 mg 04/20/21 09:00 04/20/21 08:54 Furosemide 20 Mg/2 Ml Vial IV 20 mg DAILY JESUS Administration Levothyroxine Sodium 50 mcg 04/20/21 09:30 04/20/21 10:51 Levothyroxine 50 Mcg Tablet PO 50 mcg DAILY JESUS Administration Liothyronine Sodium 5 mcg 04/20/21 10:45 04/20/21 10:51 Liothyronine 5 Mcg Tablet PO 5 mcg BID JESUS Administration Sodium Chloride 10 ml 04/19/21 21:00 04/20/21 08:54 Sodium Chloride 0.9% Flush IV 10 ml BID JESUS Administration Sodium Chloride 1 spray 04/20/21 10:10 04/20/21 10:51 Sodium Chloride Nasal Central NASAL 1 spray PRN PRN Administration Congestion Objective Ventilator Parameters: Ventilator Settings FiO2 49 Labs Result Diagrams: 04/20/21 04:10 04/19/21 13:02 Labs: Laboratory Results - last 24 hr 04/19/21 04/19/21 04/19/21 13:02 13:02 13:02 WBC 9.2 RBC 4.06 Hgb 13.0 Hct 36.8 MCV 90.9 MCH 32.1 MCHC 35.3 RDW 12.3 Plt Count 351 Neut % (Auto) 93.7 H Lymph % (Auto) 2.4 L [place] % (Auto) 3.7 Eos % (Auto) 0.0 L Baso % (Auto) 0.2 Neut # (Auto) 8600 H Lymph # (Auto) 200 L [place] # (Auto) 300 Eos # (Auto) 0 Baso # (Auto) 0 D-Dimer 592 H ABG pH ABG pCO2 ABG pO2 ABG HCO3 ABG Total CO2 ABG O2 Saturation ABG Base Excess FiO2 Sodium Potassium Chloride Carbon Dioxide BUN Creatinine Estimated GFR BUN/Creatinine Ratio Glucose Lactate Calcium Ferritin Total Bilirubin AST ALT Alkaline Phosphatase Lactate Dehydrogenase Total Creatine Kinase CK-MB (CK-2) CK-MB (CK-2) Rel Index Troponin I C-Reactive Protein NT-Pro-B Natriuret Pep Total Protein Albumin Globulin Albumin/Globulin Ratio Procalcitonin 0.06 Nasal Screen MRSA (PCR) SARS-CoV-2 (PCR) 04/19/21 04/19/21 04/19/21 13:02 13:02 13:15 WBC RBC Hgb Hct MCV MCH MCHC RDW Plt Count Neut % (Auto) Lymph % (Auto) [place] % (Auto) Eos % (Auto) Baso % (Auto) Neut # (Auto) Lymph # (Auto) [place] # (Auto) Eos # (Auto) Baso # (Auto) D-Dimer ABG pH ABG pCO2 ABG pO2 ABG HCO3 ABG Total CO2 ABG O2 Saturation ABG Base Excess FiO2 Sodium 134 L Potassium 3.6 Chloride 101 Carbon Dioxide 24 BUN 17 Creatinine 0.71 Estimated GFR > 60.0 BUN/Creatinine Ratio 23.9 H Glucose 113 H Lactate 2.9 H Calcium 9.4 Ferritin 421 H Total Bilirubin 0.3 AST 57 H ALT 36 H Alkaline Phosphatase 85 Lactate Dehydrogenase 919 H Total Creatine Kinase 42 CK-MB (CK-2) TNP CK-MB (CK-2) Rel Index TNP Troponin I < 0.012 C-Reactive Protein 13.7 H NT-Pro-B Natriuret Pep 213 H Total Protein 7.1 Albumin 3.7 Globulin 3.4 Albumin/Globulin Ratio 1.1 Procalcitonin Nasal Screen MRSA (PCR) SARS-CoV-2 (PCR) Positive H 04/19/21 04/19/21 04/19/21 13:20 16:30 17:20 WBC RBC Hgb Hct MCV MCH MCHC RDW Plt Count Neut % (Auto) Lymph % (Auto) [place] % (Auto) Eos % (Auto) Baso % (Auto) Neut # (Auto) Lymph # (Auto) [place] # (Auto) Eos # (Auto) Baso # (Auto) D-Dimer ABG pH 7.45 ABG pCO2 34.0 L ABG pO2 71 L ABG HCO3 24 ABG Total CO2 25 ABG O2 Saturation 95 ABG Base Excess 0.0 FiO2 39 Sodium Potassium Chloride Carbon Dioxide BUN Creatinine Estimated GFR BUN/Creatinine Ratio Glucose Lactate 1.5 Calcium Ferritin Total Bilirubin AST ALT Alkaline Phosphatase Lactate Dehydrogenase Total Creatine Kinase CK-MB (CK-2) CK-MB (CK-2) Rel Index Troponin I C-Reactive Protein NT-Pro-B Natriuret Pep Total Protein Albumin Globulin Albumin/Globulin Ratio Procalcitonin Nasal Screen MRSA (PCR) Negative for mrsa SARS-CoV-2 (PCR) 04/20/21 04:10 WBC 13.1 H RBC 3.86 L Hgb 12.3 Hct 35.3 L MCV 91.4 MCH 31.8 MCHC 34.7 RDW 12.6 Plt Count 343 Neut % (Auto) 95.1 H Lymph % (Auto) 2.3 L [place] % (Auto) 2.5 L Eos % (Auto) 0.0 L Baso % (Auto) 0.1 Neut # (Auto) 43859 H Lymph # (Auto) 300 L [place] # (Auto) 300 Eos # (Auto) 0 Baso # (Auto) 0 D-Dimer ABG pH ABG pCO2 ABG pO2 ABG HCO3 ABG Total CO2 ABG O2 Saturation ABG Base Excess FiO2 Sodium Potassium Chloride Carbon Dioxide BUN Creatinine Estimated GFR BUN/Creatinine Ratio Glucose Lactate Calcium Ferritin Total Bilirubin AST ALT Alkaline Phosphatase Lactate Dehydrogenase Total Creatine Kinase CK-MB (CK-2) CK-MB (CK-2) Rel Index Troponin I C-Reactive Protein NT-Pro-B Natriuret Pep Total Protein Albumin Globulin Albumin/Globulin Ratio Procalcitonin Nasal Screen MRSA (PCR) SARS-CoV-2 (PCR) Exam Vital Signs (past 8 hours): - 04/20/21 03:00 04/20/21 03:38 04/20/21 04:00 Temperature 98.3 F Pulse Rate 66 62 61 Respiratory Rate 22 22 14 Blood Pressure 130/80 130/80 114/75 Pulse Oximetry 97 98 96 04/20/21 05:00 04/20/21 05:02 04/20/21 05:19 Temperature Pulse Rate 62 59 L 59 L Respiratory Rate 24 19 22 Blood Pressure 116/76 116/76 Pulse Oximetry 97 98 96 04/20/21 06:00 04/20/21 08:00 04/20/21 09:00 Temperature 97.5 F L Pulse Rate 59 L 66 72 Respiratory Rate 31 H 22 29 H Blood Pressure 113/76 120/81 135/75 Pulse Oximetry 96 92 93 Fraction of Inspired Oxygen 0.58 Oxygen Delivery Method Heated High Flow Oxygen Flow Rate 40 Assessment & Plan Assessment & Plan narrative: Assessment & Plan narrative: NEURO: # Anxiety -- On xanax as needed for anxiety RESP: # Acute hypoxemia respiratory failure -- Secondary to COVID pneumonia -- COVID rx as below -- Continue gentle diuresis -- On HFNC 40/60% -- RT to titrate down FiO2 and flow to maintain goal SpO2 > 90% -- Difficult to self prone due to fibromyalgia but agreeable to turn side to side. -- Encourage early ambulation as tolerated to prevent atelectasis ID: # COVID PNA -- Trend CRP, LDH, ferritin, and LFTs -- On baricitinib and decadron -- On strict contact, droplet/airborne, eye protection, and critical meticulous hand hygiene ENDO: -- Goal BS < 180 D/w RN at beside. CCT 40 min Time Spent With Patient Critical Care time: I spent a total of [] minutes of critical care time on this patient's care today; this time is exclusive of procedural time.
--- NOTE | 2021-04-20 12:17 | CM.DANOTE ---
DCP: Case received, EMR reviewed. Due to patient being COVID positive, did not enter room. Called room, spoke to COTTON WEIGHER for information, since patient was in the restroom. Was able to complete DCP assessment based upon information currently available. Patient is a 50 year old female who admitted yesterday afternoon to the care of the hospitalist team. PCP: Dr. Rosado. Payer: confirmed: [employer]. Patient came to the hospital via ambulance secondary to having increased shortness of breath. According to notes, patient had these symptoms for nearly two weeks. Patient had family ill with COVID. Patient has not been vaccinated. She holds current diagnosis of COVID pneumonia. Was not able to meet with patient due to her COVID, but did call room. COTTON WEIGHER answered, for patient was in the restroom. She is ambulating with no difficulties, she just needs assistance due to IV and oxygen. She resides in [place] with her spouse, Lefty. She is self employed. P: DCP to continue to follow. Patient should be able to go home when she is deemed medically stable. Yasmin Connelly RN/Administrative Aide Discharge Planning/Care Management CM Discharge Assessment Start: 04/20/21 12:13 Freq: Status: Active Protocol: Document 04/20/21 12:13 (Rec: 04/20/21 12:17 [id number]) Discharge Planning Assessment Assigned Caramel Maker Yasmin Connelly RN/Administrative Aide Advance Directives? No Advance Directives on File No History Provided By Patient,Medical Record Prior Living Arrangements House Household Members spouse,family Type of transporation used prior to Drives own vehicle admit Independent with ADL's Yes Is patient alert and oriented? Yes Caregiver for Another No Discharge Plan Home Transportation Arrangement Spouse Referrals Initiated None needed Whiteboard Updated in Patient Room with Yes name and ext. # of Caramel Maker Review Status In Process Next Review Type Continued Stay Review
[2021-04-20] MEDS: ALBUTEROL/IPRATROPIUM 3 ML AMPUL INH ×2 (12:57→17:03)
--- NOTE | 2021-04-20 13:03 | PC.NURSE ---
1303: Patient alert and oriented x 3; Moves all extremities per command; Skin warm, dry,and pale; Patient request breathing treatment; Patient with shallow, fast respirations, 28-32 bpm; Able to talk in full sentences; Breath sounds diminished and coarse throughout;
--- NOTE | 2021-04-20 14:56 | PM.PN.1 ---
Subjective Subjective Date Patient Seen: 04/20/21 Time Patient Seen: 08:00 Interval history: Today she feels that her breathing is mildly improved. But she still can not take deep breaths. Exam Vital Signs (past 8 hours): - 04/20/21 08:00 04/20/21 08:18 04/20/21 09:00 Temperature 97.5 F L Pulse Rate 66 64 72 Respiratory Rate 22 24 29 H Blood Pressure 120/81 120/81 135/75 Pulse Oximetry 99 94 93 04/20/21 10:00 04/20/21 11:00 04/20/21 11:06 Temperature Pulse Rate 69 62 62 Respiratory Rate 41 H 14 28 H Blood Pressure 119/74 123/74 Pulse Oximetry 92 99 92 04/20/21 12:00 04/20/21 12:22 04/20/21 13:00 Temperature 97.8 F Pulse Rate 63 62 66 Respiratory Rate 33 H 28 H 20 Blood Pressure 120/81 120/81 114/72 Pulse Oximetry 93 92 90 L 04/20/21 14:20 Temperature Pulse Rate 73 Respiratory Rate 28 H Blood Pressure 119/80 Pulse Oximetry 93 Fraction of Inspired Oxygen 40 Oxygen Delivery Method Heated High Flow Oxygen Flow Rate 40 Narrative Exam Narrative: GEN: moderate respiratory distress HEENT: moist mucous membranes, PERRL NECK: trachea midline, no JVD CV: regular rate and rhythm, no murmurs PULM: very diminished breath sounds bilaterally ABD: soft, nontender, nondistended, no organomegaly, normal bowel sounds EXT: warm and well perfused with no edema NEURO: awake, alert oriented PSYCH: pleasant SKIN: no rashes Objective Labs Result Diagrams: 04/20/21 04:10 04/19/21 13:02 Labs: Laboratory Results - last 24 hr 04/19/21 04/19/21 04/20/21 16:30 17:20 04:10 WBC 13.1 H RBC 3.86 L Hgb 12.3 Hct 35.3 L MCV 91.4 MCH 31.8 MCHC 34.7 RDW 12.6 Plt Count 343 Neut % (Auto) 95.1 H Lymph % (Auto) 2.3 L [place] % (Auto) 2.5 L Eos % (Auto) 0.0 L Baso % (Auto) 0.1 Neut # (Auto) 23534 H Lymph # (Auto) 300 L [place] # (Auto) 300 Eos # (Auto) 0 Baso # (Auto) 0 Lactate 1.5 Nasal Screen MRSA (PCR) Negative for mrsa PFSH Medical History Fibromyalgia Hypothyroid Reactive airway disease Social History household members: spouse and family Smoking Status: Never smoker Assessment & Plan Assessment & Plan narrative: Ms. Zelalem Cordova is a 50W with PMH reactive airway disease, hypothyroid who presents with acute respiratory failure from covid pneumonia. 1. Acute hypoxemic respiratory failure from COVID pneumonia -patient is unfortunately unvaccinated -declines remdesivir -ordered baricitinib, dexamethasone -transferred to ICU as she is on heated high flow -has history of reactive airway disease, ordered for nebs -consult to visual stylist -ordered for lovenox for dvt ppx 2. Hypothyroidism -continue home medications CODE: Full Proxy: Lefty Cordova, I have utilized all available resources to reconcile the patient's home medications. Time Spent With Patient Critical Care time: I spent a total of [] minutes of critical care time on this patient's care today; this time is exclusive of procedural time.
--- NOTE | 2021-04-20 21:30 | P.ICUMDRN_ITS ---
- Date Patient Seen: 04/20/21 Time Patient Seen: 20:55 :: This patient was seen via real time interactive two-way audiovisual telecommunication. Note: 50 y.o. w/ PMHx of reactive airway disease and hypothyroidism admitted with COVID-19 acute hypoxic respiratory failure. Patient is unvaccinated. Currently on HFNC 40 L/min 40%. Chart reviewed. INTERVENTIONS 1) I increased Lasix to BID given +fluid balance of 800 mL thus far and her fi rst episode of O2 sat desaturation earlier today. 2) Noted PRN ibuprofen order; would consider alternative analgesic given dexamethasone therapy and potential side effects; will defer to bedside team. In the interim, will start PPI prophylaxis Otherwise, continue present plan.
[2021-04-21] VITALS (84 sets, daily range): BP systolic 99–153; BP diastolic 67–99; PULSE 48–98; RESP 9–64; TEMP 36.3–37; O2SAT 82–99
[2021-04-21 04:59] LABS: Blood Urea Nitrogen 30 mg/dL (7-17); Calcium 9.3 mg/dL (8.4-10.2); Carbon Dioxide 29 mmol/L (22-32); Chloride 100 mmol/L (98-107); Estimated Glomerular Filt Rate > 60.0 mL/min (>60); Glucose 105 mg/dL (70-100); HEMOLYSIS 16 (0-50); Sodium 133 mmol/L (137-145)
[2021-04-21 05:00] LABS: Hematocrit 35.3 % (36-46); Hemoglobin 12.4 g/dL (12.0-16.0); Mean Corpuscular Hemoglobin 32.1 PG (26-34); Mean Corpuscular Volume 91.6 fL (80-100); Platelet Count 379 X10^3/uL (150-400); Red Blood Cell Count 3.85 X10^6/uL (4.0-5.2); Red Cell Distribution Width 12.4 % (11.6-14.8); White Blood Cell Count 10.7 X10^3/uL (4.5-11.0)
[2021-04-21] MEDS: LEVOTHYROXINE 50 MCG TABLET PO (06:38)
[2021-04-21] MEDS: DEXAMETHASONE 10 MG/ML VIAL 6 MG IV (08:20)
[2021-04-21] MEDS: ENOXAPARIN 40 MG/0.4 ML SYRINGE SUBCUT ×2 (08:20→21:37)
[2021-04-21] MEDS: PANTOPRAZOLE 40 MG VIAL IV (08:20)
[2021-04-21] MEDS: BARICITINIB 2 MG TABLET 4 MG PO (08:21)
[2021-04-21] MEDS: FUROSEMIDE 20 MG/2 ML VIAL IV ×2 (08:22→21:37)
[2021-04-21] MEDS: ALPRAZolam 0.25 MG TABLET PO ×3 (08:22→21:39)
[2021-04-21] MEDS: LIOTHYRONINE 5 MCG TABLET PO ×2 (08:23→21:37)
[2021-04-21] MEDS: SODIUM CHLORIDE 0.9% FLUSH 10 ML IV ×2 (08:37→21:40)
[2021-04-21] MEDS: ALBUTEROL/IPRATROPIUM 3 ML AMPUL INH ×2 (09:25→19:28)
--- NOTE | 2021-04-21 12:21 | P.TELICUPN_ITS ---
Subjective Subjective :: This patient was seen via real time interactive two-way audiovisual telecommunication. Current Medications Current Medications Medications: Home Medications albuterol sulfate 90 mcg/actuation aerosol inhaler 2 inh INHALATION Q6HR PRN 04/19/21 [History Confirmed 04/19/21] doxycycline hyclate 100 mg tablet 100 mg PO BID 04/19/21 [History Confirmed 04/19/21] fluvoxamine 50 mg tablet 50 mg PO BID 04/19/21 [History Confirmed 04/19/21] levothyroxine 50 mcg tablet (Synthroid) 50 mcg PO QAM 04/19/21 [History Confirmed 04/19/21] liothyronine 5 mcg tablet 5 mcg PO BID 04/19/21 [History Confirmed 04/19/21] Visit Medications (administered) Generic Name Dose Route Start Last Admin Trade Name Freq PRN Reason Stop Dose Admin Acetaminophen 650 mg 04/19/21 16:41 04/19/21 21:17 Acetaminophen 325 Mg Tablet PO 650 mg Q6HR PRN Administration Fever/Mild Pain (1-3) Albuterol/Ipratropium 3 ml 04/19/21 16:43 04/21/21 09:25 Albuterol/Ipratropium 3 Ml Ampul INH 3 ml RTQ4HR PRN Administration Shortness Of Breath Alprazolam 0.25 mg 04/19/21 20:37 04/21/21 08:22 Alprazolam 0.25 Mg Tablet PO 0.25 mg Q6H PRN Administration Anxiety Dexamethasone 6 mg 04/20/21 09:00 04/21/21 08:20 Dexamethasone 10 Mg/Ml Vial IV 6 mg DAILY JESUS Administration Enoxaparin Sodium 40 mg 04/19/21 21:00 04/21/21 08:20 Enoxaparin 40 Mg/0.4 Ml Syringe SUBCUT 40 mg BID JESUS Administration Furosemide 20 mg 04/20/21 21:00 04/21/21 08:22 Furosemide 20 Mg/2 Ml Vial IV 20 mg BID JESUS Administration Levothyroxine Sodium 50 mcg 04/20/21 09:30 04/21/21 06:38 Levothyroxine 50 Mcg Tablet PO 50 mcg DAILY JESUS Administration Liothyronine Sodium 5 mcg 04/20/21 10:45 04/21/21 08:23 Liothyronine 5 Mcg Tablet PO 5 mcg BID JESUS Administration Pantoprazole Sodium 40 mg 04/21/21 09:00 04/21/21 08:20 Pantoprazole 40 Mg Vial IV 40 mg DAILY JESUS Administration Sodium Chloride 10 ml 04/19/21 21:00 04/21/21 08:37 Sodium Chloride 0.9% Flush IV 10 ml BID JESUS Administration Sodium Chloride 1 spray 04/20/21 10:10 04/20/21 10:51 Sodium Chloride Nasal [place] NASAL 1 spray PRN PRN Administration Congestion Objective Ventilator Parameters: Ventilator Settings FiO2 49 Labs Result Diagrams: 04/21/21 04:10 04/21/21 04:10 Labs: Laboratory Results - last 24 hr 04/21/21 04/21/21 04:10 04:10 WBC 10.7 RBC 3.85 L Hgb 12.4 Hct 35.3 L MCV 91.6 MCH 32.1 MCHC 35.0 RDW 12.4 Plt Count 379 Sodium 133 L Potassium 4.0 Chloride 100 Carbon Dioxide 29 BUN 30 H Creatinine 0.75 Estimated GFR > 60.0 BUN/Creatinine Ratio 40.0 H Glucose 105 H Calcium 9.3 Exam Vital Signs (past 8 hours): - 04/21/21 04:30 04/21/21 04:45 04/21/21 05:00 Temperature Pulse Rate 51 L 52 L 59 L Respiratory Rate 30 H 29 H 23 Blood Pressure 125/83 Pulse Oximetry 96 95 96 04/21/21 06:00 04/21/21 06:01 04/21/21 06:27 Temperature Pulse Rate 52 L 51 L 51 L Respiratory Rate 29 H 32 H 32 H Blood Pressure 122/77 Pulse Oximetry 94 95 95 04/21/21 07:00 04/21/21 08:00 04/21/21 08:50 Temperature 97.7 F Pulse Rate 53 L 64 54 L Respiratory Rate 24 22 36 H Blood Pressure 122/99 H 117/83 117/86 Pulse Oximetry 93 93 91 04/21/21 11:22 Temperature Pulse Rate 67 Respiratory Rate 30 H Blood Pressure 106/67 Pulse Oximetry 93 Fraction of Inspired Oxygen 40 Oxygen Delivery Method Heated High Flow Oxygen Flow Rate 40 Assessment & Plan Assessment & Plan narrative: NEURO: # Anxiety -- On xanax as needed for anxiety RESP: # Acute hypoxemia respiratory failure -- Secondary to COVID pneumonia -- COVID rx as below -- Continue gentle diuresis -- On HFNC 40/50% -- RT to titrate down FiO2 and flow to maintain goal SpO2 > 90% -- Difficult to self prone due to fibromyalgia but agreeable to turn side to side. -- Encourage early ambulation as tolerated to prevent atelectasis ID: # COVID PNA -- Trend CRP, LDH, ferritin, and LFTs...check LFT in Am -- On baricitinib and decadron -- On strict contact, droplet/airborne, eye protection, and critical meticulous hand hygiene ENDO: -- Goal BS < 180 D/w RN at beside. CCT 35 min Time Spent With Patient Critical Care time: I spent a total of [] minutes of critical care time on this patient's care today; this time is exclusive of procedural time.
[2021-04-21] MEDS: IBUPROFEN 600 MG TABLET PO ×2 (14:21→21:38)
--- NOTE | 2021-04-21 19:04 | P.PN_ITS ---
Subjective Subjective Date Patient Seen: 04/21/21 Time Patient Seen: 08:00 Interval history: She is still short of breath, she thinks she feels slightly improved. Exam Vital Signs (past 8 hours): - 04/21/21 11:15 04/21/21 11:22 04/21/21 11:30 Temperature Pulse Rate 69 67 71 Respiratory Rate 34 H 30 H 33 H Blood Pressure 106/67 Pulse Oximetry 95 93 94 04/21/21 11:45 04/21/21 12:00 04/21/21 12:15 Temperature Pulse Rate 62 61 62 Respiratory Rate 32 H 35 H 36 H Blood Pressure 110/73 Pulse Oximetry 95 93 91 04/21/21 12:30 04/21/21 12:45 04/21/21 13:00 Temperature Pulse Rate 61 67 64 Respiratory Rate 36 H 39 H 40 H Blood Pressure 109/69 Pulse Oximetry 91 90 L 92 04/21/21 14:00 04/21/21 14:37 04/21/21 15:00 Temperature 97.8 F Pulse Rate 60 56 L 69 Respiratory Rate 34 H 24 45 H Blood Pressure 123/72 123/72 99/69 Pulse Oximetry 91 94 99 04/21/21 16:00 04/21/21 17:00 04/21/21 18:00 Temperature 97.8 F Pulse Rate 67 57 L 58 L Respiratory Rate 44 H 32 H 40 H Blood Pressure 143/94 H 153/96 H 141/84 H Pulse Oximetry 99 96 98 04/21/21 18:10 Temperature Pulse Rate 65 Respiratory Rate 24 Blood Pressure 141/84 H Pulse Oximetry 99 Fraction of Inspired Oxygen 50 Oxygen Delivery Method High Flow Nasal Cannula Oxygen Flow Rate 40 Narrative Exam Narrative: GEN: moderate respiratory distress HEENT: moist mucous membranes, PERRL NECK: trachea midline, no JVD CV: regular rate and rhythm, no murmurs PULM: very diminished breath sounds bilaterally ABD: soft, nontender, nondistended, no organomegaly, normal bowel sounds EXT: warm and well perfused with no edema NEURO: awake, alert oriented PSYCH: pleasant SKIN: no rashes Objective Labs Result Diagrams: 04/21/21 04:10 04/21/21 04:10 Labs: Laboratory Results - last 24 hr 04/21/21 04/21/21 04:10 04:10 WBC 10.7 RBC 3.85 L Hgb 12.4 Hct 35.3 L MCV 91.6 MCH 32.1 MCHC 35.0 RDW 12.4 Plt Count 379 Sodium 133 L Potassium 4.0 Chloride 100 Carbon Dioxide 29 BUN 30 H Creatinine 0.75 Estimated GFR > 60.0 BUN/Creatinine Ratio 40.0 H Glucose 105 H Calcium 9.3 PFSH Medical History Fibromyalgia Hypothyroid Reactive airway disease Social History household members: spouse and family Smoking Status: Never smoker Assessment & Plan Assessment & Plan narrative: Ms. Zelalem Cordova is a 50W with PMH reactive airway disease, hypothyroid who presents with acute respiratory failure from covid pneumonia. 1. Acute hypoxemic respiratory failure from COVID pneumonia -patient is unfortunately unvaccinated -declines remdesivir -ordered baricitinib, dexamethasone -transferred to ICU as she is on heated high flow -has history of reactive airway disease, ordered for nebs -consult to business systems administrator -ordered for lovenox for dvt ppx 2. Hypothyroidism -continue home medications CODE: Full Proxy: Lefty Cordova, I have utilized all available resources to reconcile the patient's home medications. Time Spent With Patient Critical Care time: I spent a total of [] minutes of critical care time on this patient's care today; this time is exclusive of procedural time.
--- NOTE | 2021-04-21 22:21 | PM.ICURNDS ---
- Date Patient Seen: 04/21/21 Time Patient Seen: 22:00 :: This patient was seen via real time interactive two-way audiovisual telecommunication. Note: 50 y.o. with COVID-19 acute hypoxic respiratory failure. Remains on dexamethasone, baricitinib, and HFNC which is currently on 40 L/min 45%. Overall condition is essentially unchanged from yesterday. Continue present mgmt. Discussed with RN.
[2021-04-22] VITALS (17 sets, daily range): BP systolic 107–136; BP diastolic 64–84; PULSE 52–93; RESP 22–45; TEMP 36.6–36.9; O2SAT 85–98
[2021-04-22] MEDS: IBUPROFEN 600 MG TABLET PO (04:56)
[2021-04-22] MEDS: ALPRAZolam 0.25 MG TABLET PO ×3 (04:56→21:03)
--- NOTE | 2021-04-22 05:20 | PC.NURSE ---
0500- Patient had prolonged desaturation with mobilization to the bedside commode. Patient has not remained sidelying despite multiple conversations to do so and explanation of the benefits. Patient refuses to prone. Respiratory therapy at bedside to evaluate patient. Will monitor.
[2021-04-22] MEDS: BARICITINIB 2 MG TABLET 4 MG PO (08:48)
[2021-04-22] MEDS: DEXAMETHASONE 10 MG/ML VIAL 6 MG IV (08:49)
[2021-04-22] MEDS: ENOXAPARIN 40 MG/0.4 ML SYRINGE SUBCUT ×2 (08:49→21:02)
[2021-04-22] MEDS: FUROSEMIDE 20 MG/2 ML VIAL IV ×2 (08:50→21:03)
[2021-04-22] MEDS: PANTOPRAZOLE 40 MG VIAL IV (08:50)
[2021-04-22] MEDS: LIOTHYRONINE 5 MCG TABLET PO ×2 (08:51→21:03)
--- NOTE | 2021-04-22 11:32 | CM.DPC ---
DCP Cont: Discussed patient during team rounds. Arelis, nursing technician indicated that patient is continuing on high flow oxygen, and needs be encouraged to prone. She is not yet medically ready for discharge as of yet, but could possibly need home oxygen. P: DCP to continue to follow. Plan is for her to go home when she is deemed medically stable, possibly with home oxygen. Yasmin Connelly, GORDON/[employer]
--- NOTE | 2021-04-22 11:42 | PM.PN.EICU ---
Subjective Subjective :: This patient was seen via real time interactive two-way audiovisual telecommunication. some shortness of breath stable Current Medications Current Medications Medications: Home Medications albuterol sulfate 90 mcg/actuation aerosol inhaler 2 inh INHALATION Q6HR PRN 04/19/21 [History Confirmed 04/19/21] doxycycline hyclate 100 mg tablet 100 mg PO BID 04/19/21 [History Confirmed 04/19/21] fluvoxamine 50 mg tablet 50 mg PO BID 04/19/21 [History Confirmed 04/19/21] levothyroxine 50 mcg tablet (Synthroid) 50 mcg PO QAM 04/19/21 [History Confirmed 04/19/21] liothyronine 5 mcg tablet 5 mcg PO BID 04/19/21 [History Confirmed 04/19/21] Visit Medications (administered) Generic Name Dose Route Start Last Admin Trade Name Freq PRN Reason Stop Dose Admin Acetaminophen 650 mg 04/19/21 16:41 04/19/21 21:17 Acetaminophen 325 Mg Tablet PO 650 mg Q6HR PRN Administration Fever/Mild Pain (1-3) Albuterol/Ipratropium 3 ml 04/19/21 16:43 04/21/21 19:28 Albuterol/Ipratropium 3 Ml Ampul INH 3 ml RTQ4HR PRN Administration Shortness Of Breath Alprazolam 0.25 mg 04/19/21 20:37 04/22/21 04:56 Alprazolam 0.25 Mg Tablet PO 0.25 mg Q6H PRN Administration Anxiety Dexamethasone 6 mg 04/20/21 09:00 04/22/21 08:49 Dexamethasone 10 Mg/Ml Vial IV 6 mg DAILY JESUS Administration Enoxaparin Sodium 40 mg 04/19/21 21:00 04/22/21 08:49 Enoxaparin 40 Mg/0.4 Ml Syringe SUBCUT 40 mg BID JESUS Administration Furosemide 20 mg 04/20/21 21:00 04/22/21 08:50 Furosemide 20 Mg/2 Ml Vial IV 20 mg BID JESUS Administration Ibuprofen 600 mg 04/21/21 13:19 04/22/21 04:56 Ibuprofen 600 Mg Tablet PO 600 mg Q6HR PRN Administration Fever/Mild Pain (1-3) Levothyroxine Sodium 50 mcg 04/20/21 09:30 04/21/21 06:38 Levothyroxine 50 Mcg Tablet PO 50 mcg DAILY JESUS Administration Liothyronine Sodium 5 mcg 04/20/21 10:45 04/22/21 08:51 Liothyronine 5 Mcg Tablet PO 5 mcg BID JESUS Administration Pantoprazole Sodium 40 mg 04/21/21 09:00 04/22/21 08:50 Pantoprazole 40 Mg Vial IV 40 mg DAILY JESUS Administration Sodium Chloride 10 ml 04/19/21 21:00 04/21/21 21:40 Sodium Chloride 0.9% Flush IV 10 ml BID JESUS Administration Sodium Chloride 1 spray 04/20/21 10:10 04/20/21 10:51 Sodium Chloride Nasal [place] NASAL 1 spray PRN PRN Administration Congestion Objective Ventilator Parameters: Ventilator Settings FiO2 49 Labs Result Diagrams: 04/21/21 04:10 04/21/21 04:10 Exam Vital Signs (past 8 hours): - 04/22/21 04:00 04/22/21 05:00 04/22/21 05:35 Temperature 98.2 F Pulse Rate 61 61 61 Respiratory Rate 30 H 30 H 30 H Blood Pressure 136/82 136/82 136/82 Pulse Oximetry 97 97 88 L 04/22/21 09:00 04/22/21 11:09 Temperature 98.4 F Pulse Rate 55 L 68 Respiratory Rate 26 H 24 Blood Pressure 134/64 Pulse Oximetry 96 98 Fraction of Inspired Oxygen 0.60 Oxygen Delivery Method Heated High Flow Oxygen Flow Rate 48 Assessment & Plan Assessment & Plan narrative: pateints seen and examined with bedside nurse and provider chart/labs/imaging reviewed 50 year old female with acute respiratoy familyre 2/ 2 to covid PNA suggest -minimize benzo use for anxiety can use precede if need -cont steroids -continue baricitinib -wean fio2 if possible use bipap if increased work of breathing -diuresis prn -oob prn -keep glucose 140-180s -gi/dvt ppx -discuss goals of care daily -please call teleICU prn D/w RN at beside. Time Spent With Patient Critical Care time: I spent a total of [] minutes of critical care time on this patient's care today; this time is exclusive of procedural time.
[2021-04-22] MEDS: guaiFENesin ER 600 MG TAB PO (12:52)
[2021-04-22] MEDS: LEVOTHYROXINE 50 MCG TABLET PO (12:53)
--- NOTE | 2021-04-22 14:37 | P.PN_ITS ---
Subjective Subjective Date Patient Seen: 04/22/21 Time Patient Seen: 08:00 Interval history: Today she is short of breath, but thinking she might have slightly improved. However, overnight she was short of breath and did need an increase in her setting on her heated high flow. Exam Vital Signs (past 8 hours): - 04/22/21 09:00 04/22/21 11:09 04/22/21 12:44 Temperature 98.4 F Pulse Rate 55 L 68 60 Respiratory Rate 26 H 24 24 Blood Pressure 134/64 134/84 Pulse Oximetry 96 98 98 Fraction of Inspired Oxygen 0.60 Oxygen Delivery Method Heated High Flow Oxygen Flow Rate 48 Narrative Exam Narrative: GEN: moderate respiratory distress HEENT: moist mucous membranes, PERRL NECK: trachea midline, no JVD CV: regular rate and rhythm, no murmurs PULM: very diminished breath sounds bilaterally ABD: soft, nontender, nondistended, no organomegaly, normal bowel sounds EXT: warm and well perfused with no edema NEURO: awake, alert oriented PSYCH: pleasant SKIN: no rashes Objective Labs Result Diagrams: 04/21/21 04:10 04/21/21 04:10 [facility] Medical History Fibromyalgia Hypothyroid Reactive airway disease Social History household members: spouse and family Smoking Status: Never smoker Assessment & Plan Assessment & Plan narrative: Ms. Zelalem Cordova is a 50W with H reactive airway disease, hypothyroid who presents with acute respiratory failure from covid pneumonia. 1. Acute hypoxemic respiratory failure from COVID pneumonia -patient is unfortunately unvaccinated -declines remdesivir -ordered baricitinib, dexamethasone -transferred to ICU as she is on heated high flow -has history of reactive airway disease, ordered for nebs -consult to automatic serging machine operator -ordered for lovenox for dvt ppx 2. Hypothyroidism -continue home medications Time Spent With Patient Critical Care time: I spent a total of [] minutes of critical care time on this patient's care today; this time is exclusive of procedural time.
[2021-04-22] MEDS: ALBUTEROL/IPRATROPIUM 3 ML AMPUL INH ×2 (16:14→21:52)
[2021-04-22] MEDS: MAGNESIUM OXIDE 400 MG TABLET PO (21:03)
[2021-04-22] MEDS: SODIUM CHLORIDE 0.9% FLUSH 10 ML IV (21:03)
--- NOTE | 2021-04-22 23:10 | PC.NURSE ---
Addendum entered by Reina Villalba R.N. 04/23/21 05:44: 0530- Patient has rested well tonight after de la paz placed. Oxygen increased due to air hunger and increased work of breathing. 50 liters and 55% FI02 of note patient has had increased respiratory rate all night 32-40. Continues to have periods of prolonged desaturation with activity. Will monitor. Original Note: 2229- Patient requesting a de la paz catheter. Dr. Shay notified and order received. De La Paz placed without any problems. Some blood noted but patient is on her mensus.
--- NOTE | 2021-04-22 23:16 | PM.ICURNDS ---
- Date Patient Seen: 04/22/21 Time Patient Seen: 23:10 :: This patient was seen via real time interactive two-way audiovisual telecommunication. Note: Patient with COVID-19/acute hypoxic respiratory failure. Currently comfortable on 45 L 45% HFNC. Continue baricitinib, dexamethasone and the rest of the current mgmt; discussed with RN.
[2021-04-23] VITALS (18 sets, daily range): BP systolic 85–130; BP diastolic 57–85; PULSE 63–96; RESP 26–44; TEMP 36–36.5; O2SAT 92–100
[2021-04-23] MEDS: PANTOPRAZOLE DR 40 MG TABLET PO (06:20)
[2021-04-23 06:48] LABS: Hematocrit 38.1 % (36-46); Hemoglobin 13.2 g/dL (12.0-16.0); Mean Corpuscular HGB Conc 34.6 % (30-36); Mean Corpuscular Hemoglobin 31.4 PG (26-34); Mean Corpuscular Volume 90.8 fL (80-100); Platelet Count 451 X10^3/uL (150-400); Red Blood Cell Count 4.19 X10^6/uL (4.0-5.2); Red Cell Distribution Width 12.1 % (11.6-14.8); White Blood Cell Count 9.8 X10^3/uL (4.5-11.0)
--- NOTE | 2021-04-23 08:10 | P.PN_ITS ---
Subjective Subjective Date Patient Seen: 04/23/21 Interval history: She is seen here today to follow-up her COVID viral pneumonia. She remains stable on 50 L high-flow nasal cannula 55% FiO2. She has been doing better with resumption of her routine Xanax for her anxiety. She now has a Wiggins catheter to help with fluid management. She describes becoming quite short of breath when getting up to the chair or the commode. She is reluctant to prone, afraid of remdesivir, unvaccinated, experiencing increased fibromyalgia pain and requesting cyclobenzaprine today. Exam Vital Signs (past 8 hours): - 04/23/21 01:00 04/23/21 02:29 04/23/21 04:35 Pulse Rate 64 65 63 Respiratory Rate 35 H 30 H 30 H Pulse Oximetry 100 100 98 04/23/21 05:00 04/23/21 05:01 04/23/21 06:13 Pulse Rate 63 65 65 Respiratory Rate 31 H 30 H 36 H Pulse Oximetry 99 98 100 Fraction of Inspired Oxygen 55 Oxygen Delivery Method Heated High Flow Oxygen Flow Rate 50 Narrative Exam Narrative: She is alert and oriented x3. She is in moderate distress from marginal breathing ability at this point. She describes the the smallest exertion causes a feeling of her chest collapsing. Heart is regular rate and rhythm without murmur Lungs are clear to auscultation bilaterally Extremities have no ankle edema She is anxious. She has a Wiggins catheter now Objective Labs Result Diagrams: 04/23/21 05:05 04/23/21 10:48 Labs: Laboratory Results - last 24 hr 04/23/21 05:05 WBC 9.8 RBC 4.19 Hgb 13.2 Hct 38.1 MCV 90.8 MCH 31.4 MCHC 34.6 RDW 12.1 Plt Count 451 H [facility] Medical History Fibromyalgia Hypothyroid Reactive airway disease Social History household members: spouse and family Smoking Status: Never smoker Assessment & Plan Assessment & Plan narrative: Ms. Zelalem Cordova is a 50W with H reactive airway disease and hypothyroidism who presented with acute respiratory failure from covid pneumonia. 1. Acute hypoxemic respiratory failure from COVID pneumonia -patient is unfortunately unvaccinated -declines remdesivir -she agreed to baricitinib and dexamethasone -continues in ICU as she is on heated high flow and is full code -has history of reactive airway disease, continue beta agonists -consulting tele-project management advisor -Continue lovenox for dvt ppx 2. Hypothyroidism -continue home medications\ 3. Anxiety -continue home Xanax 4. Fibromyalgia -Continue home Cyclobenzaprine. Time Spent With Patient Critical Care time: I spent a total of [] minutes of critical care time on this patient's care today; this time is exclusive of procedural time.
[2021-04-23] MEDS: LIOTHYRONINE 5 MCG TABLET PO ×2 (08:46→21:13)
[2021-04-23] MEDS: MAGNESIUM OXIDE 400 MG TABLET PO (08:47)
[2021-04-23] MEDS: ENOXAPARIN 40 MG/0.4 ML SYRINGE SUBCUT ×2 (08:47→21:13)
[2021-04-23] MEDS: ALPRAZolam 0.25 MG TABLET PO ×2 (08:47→21:13)
[2021-04-23] MEDS: DEXAMETHASONE 10 MG/ML VIAL 6 MG IV (08:47)
[2021-04-23] MEDS: BARICITINIB 2 MG TABLET 4 MG PO (08:47)
[2021-04-23] MEDS: FUROSEMIDE 20 MG/2 ML VIAL IV ×2 (08:47→21:14)
[2021-04-23] MEDS: ASCORBIC ACID 500 MG TABLET PO (08:48)
[2021-04-23] MEDS: guaiFENesin ER 600 MG TAB PO ×2 (08:48→21:14)
[2021-04-23] MEDS: IBUPROFEN 600 MG TABLET PO ×2 (08:52→21:14)
--- NOTE | 2021-04-23 09:39 | DI.RAD.S_ITS ---
PROCEDURE: XR CHEST 1V INDICATIONS: evaluate COVID pneumonia TECHNIQUE: One view of the chest was acquired. COMPARISON: [facility], , XR CHEST 1V, 04/19/2021, 13:30. [facility], CR, XR CHEST 1V, 04/20/2021, 9:33. FINDINGS: This examination is limited by involuntary motion artifact. Surgical changes and devices: None. Lungs and pleura: Worsening bilateral interstitial type infiltrates are seen. Low lung volumes are noted. This causes a crowded appearance to the lung markings and limits evaluation. No pleural effusions or pneumothorax. Mediastinum: Mediastinal contours appear normal. Heart size is normal. Bones and chest wall: No suspicious bony lesions. Overlying soft tissues appear unremarkable. IMPRESSION: Worsening bilateral interstitial infiltrates are seen, which are consistent with the known clinical history of COVID pneumonia. Dictated by: Nikita Crystal M.D. on 04/23/2021 at 9:20 Approved by: Nikita Crystal M.D. on 04/23/2021 at 9:21
--- NOTE | 2021-04-23 09:43 | PM.PN.EICU ---
Subjective Subjective :: This patient was seen via real time interactive two-way audiovisual telecommunication. no acute events overnight Current Medications Current Medications Medications: Home Medications albuterol sulfate 90 mcg/actuation aerosol inhaler 2 inh INHALATION Q6HR PRN 04/19/21 [History Confirmed 04/19/21] doxycycline hyclate 100 mg tablet 100 mg PO BID 04/19/21 [History Confirmed 04/19/21] fluvoxamine 50 mg tablet 50 mg PO BID 04/19/21 [History Confirmed 04/19/21] levothyroxine 50 mcg tablet (Synthroid) 50 mcg PO QAM 04/19/21 [History Confirmed 04/19/21] liothyronine 5 mcg tablet 5 mcg PO BID 04/19/21 [History Confirmed 04/19/21] Visit Medications (administered) Generic Name Dose Route Start Last Admin Trade Name Freq PRN Reason Stop Dose Admin Acetaminophen 650 mg 04/19/21 16:41 04/19/21 21:17 Acetaminophen 325 Mg Tablet PO 650 mg Q6HR PRN Administration Fever/Mild Pain (1-3) Albuterol/Ipratropium 3 ml 04/19/21 16:43 04/22/21 21:52 Albuterol/Ipratropium 3 Ml Ampul INH 3 ml RTQ4HR PRN Administration Shortness Of Breath Alprazolam 0.25 mg 04/19/21 20:37 04/23/21 08:47 Alprazolam 0.25 Mg Tablet PO 0.25 mg Q6H PRN Administration Anxiety Ascorbic Acid 500 mg 04/23/21 09:00 04/23/21 08:48 Ascorbic Acid 500 Mg Tablet PO 500 mg DAILY JESUS Administration Dexamethasone 6 mg 04/20/21 09:00 04/23/21 08:47 Dexamethasone 10 Mg/Ml Vial IV 6 mg DAILY JESUS Administration Enoxaparin Sodium 40 mg 04/19/21 21:00 04/23/21 08:47 Enoxaparin 40 Mg/0.4 Ml Syringe SUBCUT 40 mg BID JESUS Administration Furosemide 20 mg 04/20/21 21:00 04/23/21 08:47 Furosemide 20 Mg/2 Ml Vial IV 20 mg BID JESUS Administration Guaifenesin 600 mg 04/22/21 11:53 04/23/21 08:48 Guaifenesin Er 600 Mg Tab PO 600 mg Q12HR PRN Administration Cough Ibuprofen 600 mg 04/21/21 13:19 04/23/21 08:52 Ibuprofen 600 Mg Tablet PO 600 mg Q6HR PRN Administration Fever/Mild Pain (1-3) Levothyroxine Sodium 50 mcg 04/20/21 09:30 04/22/21 12:53 Levothyroxine 50 Mcg Tablet PO 50 mcg DAILY JESUS Administration Liothyronine Sodium 5 mcg 04/20/21 10:45 04/23/21 08:46 Liothyronine 5 Mcg Tablet PO 5 mcg BID JESUS Administration Magnesium Oxide 400 mg 04/22/21 11:53 04/23/21 08:47 Magnesium Oxide 400 Mg Tablet PO 400 mg DAILY PRN Administration Constipation Pantoprazole Sodium 40 mg 04/23/21 06:00 04/23/21 06:[address] 40 Mg Tablet PO 40 mg 0600 JESUS Administration Sodium Chloride 10 ml 04/19/21 21:00 04/22/21 21:03 Sodium Chloride 0.9% Flush IV 10 ml BID JESUS Administration Sodium Chloride 1 spray 04/20/21 10:10 04/20/21 10:51 Sodium Chloride Nasal [place] NASAL 1 spray PRN PRN Administration Congestion Objective Ventilator Parameters: Ventilator Settings FiO2 49 Labs Result Diagrams: 04/23/21 05:05 04/21/21 04:10 Labs: Laboratory Results - last 24 hr 04/23/21 05:05 WBC 9.8 RBC 4.19 Hgb 13.2 Hct 38.1 MCV 90.8 MCH 31.4 MCHC 34.6 RDW 12.1 Plt Count 451 H Exam Vital Signs (past 8 hours): - 04/23/21 02:29 04/23/21 04:35 04/23/21 05:00 Pulse Rate 65 63 63 Respiratory Rate 30 H 30 H 31 H Blood Pressure Pulse Oximetry 100 98 99 04/23/21 05:01 04/23/21 06:13 04/23/21 09:25 Pulse Rate 65 65 82 Respiratory Rate 30 H 36 H 26 H Blood Pressure 108/77 Pulse Oximetry 98 100 95 Fraction of Inspired Oxygen 55 Oxygen Delivery Method Heated High Flow Oxygen Flow Rate 50 Assessment & Plan Assessment & Plan narrative: patient seen and examined with bedside nurse and provider chart/labs/imaging reviewed 50 year old female with acute respiratory failure 2/ 2 to covid PNA suggest -ok with low dose xanax, if need increases would suggest precedex -cont steroids -continue baricitinib -wean fio2 if possible use bipap if increased work of breathing -check cxr -check bmp -continue diuretics, pt 2L -ve, if chem shows contraction would hold -replace lytes prn -oob/incentive spirometer as tolerated -keep glucose 140-180s -gi/dvt ppx -discuss goals of care daily -keep ICU -please call teleICU prn Time Spent With Patient Critical Care time: I spent a total of [] minutes of critical care time on this patient's care today; this time is exclusive of procedural time.
[2021-04-23] MEDS: CHOLECALCIFEROL (VITAMIN D3) 400 UNIT TABLET PO (10:00)
[2021-04-23] MEDS: LEVOTHYROXINE 50 MCG TABLET PO (10:00)
--- NOTE | 2021-04-23 10:51 | PC.NURSE ---
04/22/21 Late entry PIV replaced this shift, 45L45% HHFNC. 1600 dropped to 40% Fio2. Crackles to both bases. Lasix given IV. Continue to enc proning. Pt refused. SCDs off per request. Up to chair at times this shift. Education provided about treatment recommendations.
[2021-04-23 11:32] LABS: BUN Creatinine Ratio 35.2 (6-22); Blood Urea Nitrogen 32 mg/dL (7-17); Calcium 9.8 mg/dL (8.4-10.2); Carbon Dioxide 32 mmol/L (22-32); Chloride 98 mmol/L (98-107); Estimated Glomerular Filt Rate > 60.0 mL/min (>60); Glucose 111 mg/dL (70-100); HEMOLYSIS < 15 (0-50); Potassium 3.4 mmol/L (3.4-5.1); Sodium 136 mmol/L (137-145)
[2021-04-23] MEDS: ALBUTEROL/IPRATROPIUM 3 ML AMPUL INH (12:14)
--- NOTE | 2021-04-23 13:24 | PC.NURSE ---
Addendum entered by Elvira Miles R.N. 04/23/21 17:31: Pt continues to refuse proning or position recomendations. Up to chair briefly today. Original Note: Am shift Pt is reporting no improvement of symptoms, HHFNC 50L 50% Fio2, WOB doesn't appear increased. Anxiety significant driving force with Pt increased RR , this RN at bedside for 30 minutes, talking patient down with focused breathing. PRN Xanax being used and will trial additional home flexiril for fibromyalgia pain.POC reviewed with patient and also updated with this shift. Cont to encourage proning and side laying. is encouraging same with telephone conversation in room. Using call light for needs. Add. IV access needed and at least daily labs, access placed in midline this shift. RUE, excellent blood return. Pt reports increased comfort. PIV Removed.
[2021-04-23] MEDS: CYCLOBENZAPRINE 10 MG TABLET PO ×2 (15:17→21:14)
[2021-04-23] MEDS: SODIUM CHLORIDE 0.9% FLUSH 10 ML IV (21:15)
--- NOTE | 2021-04-23 22:33 | PM.ICURNDS ---
- Date Patient Seen: 04/23/21 Time Patient Seen: 22:21 :: This patient was seen via real time interactive two-way audiovisual telecommunication. Note: Today, patient's pCXR appears worse. HFNC is at 50L 55%. She continues to be diuresed and remains on dexamethasone and baricitinib. Serum bicarbonate and BUN are slowly rising and the furosemide may need to be adjusted/stopped soon. She is high dose enoxaparin VTE chemoprophylaxis. Continue present plan; discussed with GORDON.
[2021-04-24] VITALS (21 sets, daily range): BP systolic 99–131; BP diastolic 55–87; PULSE 55–101; RESP 22–65; TEMP 35.3–36.6; O2SAT 94–100
--- NOTE | 2021-04-24 07:38 | P.TELICUPN_ITS ---
Subjective Subjective :: This patient was seen via real time interactive two-way audiovisual telecommunication. Interval history: Patient seen and examined via AV communication. Remains on HFNC 55L/50%. No new complaints, cough is slightly productive of whitish/clear flem. Anxiety better controlled with xanax Current Medications Current Medications Medications: Home Medications albuterol sulfate 90 mcg/actuation aerosol inhaler 2 inh INHALATION Q6HR PRN 04/19/21 [History Confirmed 04/19/21] doxycycline hyclate 100 mg tablet 100 mg PO BID 04/19/21 [History Confirmed 04/19/21] fluvoxamine 50 mg tablet 50 mg PO BID 04/19/21 [History Confirmed 04/19/21] levothyroxine 50 mcg tablet (Synthroid) 50 mcg PO QAM 04/19/21 [History Confirmed 04/19/21] liothyronine 5 mcg tablet 5 mcg PO BID 04/19/21 [History Confirmed 04/19/21] Visit Medications (administered) Generic Name Dose Route Start Last Admin Trade Name Freq PRN Reason Stop Dose Admin Acetaminophen 650 mg 04/19/21 16:41 04/19/21 21:17 Acetaminophen 325 Mg Tablet PO 650 mg Q6HR PRN Administration Fever/Mild Pain (1-3) Albuterol/Ipratropium 3 ml 04/19/21 16:43 04/23/21 12:14 Albuterol/Ipratropium 3 Ml Ampul INH 3 ml RTQ4HR PRN Administration Shortness Of Breath Alprazolam 0.25 mg 04/19/21 20:37 04/23/21 21:13 Alprazolam 0.25 Mg Tablet PO 0.25 mg Q6H PRN Administration Anxiety Ascorbic Acid 500 mg 04/23/21 09:00 04/23/21 08:48 Ascorbic Acid 500 Mg Tablet PO 500 mg DAILY JESUS Administration Cyclobenzaprine HCl 10 mg 04/23/21 13:26 04/23/21 21:14 Cyclobenzaprine 10 Mg Tablet PO 10 mg Q8HR PRN Administration Spasms Dexamethasone 6 mg 04/20/21 09:00 04/23/21 08:47 Dexamethasone 10 Mg/Ml Vial IV 6 mg DAILY JESUS Administration Enoxaparin Sodium 40 mg 04/19/21 21:00 04/23/21 21:13 Enoxaparin 40 Mg/0.4 Ml Syringe SUBCUT 40 mg BID JESUS Administration Furosemide 20 mg 04/20/21 21:00 04/23/21 21:14 Furosemide 20 Mg/2 Ml Vial IV 20 mg BID JESUS Administration Guaifenesin 600 mg 04/22/21 11:53 04/23/21 21:14 Guaifenesin Er 600 Mg Tab PO 600 mg Q12HR PRN Administration Cough Ibuprofen 600 mg 04/21/21 13:19 04/23/21 21:14 Ibuprofen 600 Mg Tablet PO 600 mg Q6HR PRN Administration Fever/Mild Pain (1-3) Levothyroxine Sodium 50 mcg 04/20/21 09:30 04/23/21 10:00 Levothyroxine 50 Mcg Tablet PO 50 mcg DAILY JESUS Administration Liothyronine Sodium 5 mcg 04/20/21 10:45 04/23/21 21:13 Liothyronine 5 Mcg Tablet PO 5 mcg BID JESUS Administration Magnesium Oxide 400 mg 04/22/21 11:53 04/23/21 08:47 Magnesium Oxide 400 Mg Tablet PO 400 mg DAILY PRN Administration Constipation Pantoprazole Sodium 40 mg 04/23/21 06:00 04/23/21 06:[address] 40 Mg Tablet PO 40 mg 0600 JESUS Administration Sodium Chloride 10 ml 04/19/21 21:00 04/23/21 21:15 Sodium Chloride 0.9% Flush IV 10 ml BID JESUS Administration Sodium Chloride 1 spray 04/20/21 10:10 04/20/21 10:51 Sodium Chloride Nasal [place] NASAL 1 spray PRN PRN Administration Congestion Vitamin D 400 unit 04/23/21 09:00 04/23/21 10:00 Cholecalciferol (Vitamin D3) 400 Unit Tablet PO 400 unit DAILY JESUS Administration Objective Ventilator Parameters: Ventilator Settings FiO2 49 Labs Result Diagrams: 04/24/21 08:57 04/24/21 08:57 Labs: Laboratory Results - last 24 hr 04/23/21 10:48 Sodium 136 L Potassium 3.4 Chloride 98 Carbon Dioxide 32 BUN 32 H Creatinine 0.91 Estimated GFR > 60.0 BUN/Creatinine Ratio 35.2 H Glucose 111 H Calcium 9.8 Exam Vital Signs (past 8 hours): - 04/24/21 00:45 04/24/21 01:00 04/24/21 02:40 Temperature Pulse Rate 63 65 76 Respiratory Rate 34 H 33 H 30 H Blood Pressure 130/65 Pulse Oximetry 98 100 97 04/24/21 04:16 04/24/21 06:04 04/24/21 06:43 Temperature 96 F L Pulse Rate 56 L 55 L 56 L Respiratory Rate 24 30 H 26 H Blood Pressure 99/68 Pulse Oximetry 99 98 97 Fraction of Inspired Oxygen 55 Oxygen Delivery Method Heated High Flow Oxygen Flow Rate 50 Assessment & Plan Assessment & Plan narrative: 50 year old female with acute hypoxic respiratory failure 2/ 2 to multifocal covid PNA Recommend -Continue with supplemental O2, please titrate for lowest setting necessary in order to achieve SPO2 of 90-94%, appears to be room for weaning today -Consider NIV if patient develops increase work of breathing -Continue managing anxiety, ok with low dose xanax, if needs increases would suggest precedex -Continue dexamethasone 6 mg IV qd for 10 d total -Continue baricitinib -CXR from 04/23 reviewed, revealed worsening B/L patchy opacities consistent w/ COVID-19 PNA -BMP reveals improving renal function -Continue diuretics for goal euvolemia, would wean from BID to qd and consider discontinuing altogether in coming days -Replace lytes prn, monitor Na -oob/incentive spirometer as tolerated -Goal glucose 140-180 -GI/dvt ppx -Discuss goals of care daily -Continue to monitor in ICU -Please call teleICU prn Time Spent With Patient Critical Care time: I spent a total of [35] minutes of critical care time on this patient's care today; this time is exclusive of procedural time.
[2021-04-24] MEDS: LEVOTHYROXINE 50 MCG TABLET PO (08:19)
[2021-04-24] MEDS: ASCORBIC ACID 500 MG TABLET PO (08:19)
[2021-04-24] MEDS: ENOXAPARIN 40 MG/0.4 ML SYRINGE SUBCUT ×2 (08:19→20:31)
[2021-04-24] MEDS: LIOTHYRONINE 5 MCG TABLET PO ×2 (08:19→20:32)
[2021-04-24] MEDS: DEXAMETHASONE 10 MG/ML VIAL 6 MG IV (08:20)
[2021-04-24] MEDS: ALPRAZolam 0.25 MG TABLET PO ×2 (08:20→15:27)
[2021-04-24] MEDS: CYCLOBENZAPRINE 10 MG TABLET PO ×2 (08:20→20:31)
[2021-04-24] MEDS: FUROSEMIDE 20 MG/2 ML VIAL IV (08:20)
[2021-04-24] MEDS: guaiFENesin ER 600 MG TAB PO ×2 (08:21→20:31)
[2021-04-24] MEDS: IBUPROFEN 600 MG TABLET PO ×2 (08:21→20:31)
[2021-04-24] MEDS: CHOLECALCIFEROL (VITAMIN D3) 400 UNIT TABLET PO (08:21)
[2021-04-24] MEDS: MAGNESIUM OXIDE 400 MG TABLET PO (08:21)
[2021-04-24] MEDS: BARICITINIB 2 MG TABLET 4 MG PO (08:23)
[2021-04-24] MEDS: SODIUM CHLORIDE 0.9% FLUSH 10 ML IV ×2 (08:51→20:32)
[2021-04-24 09:01] LABS: Hematocrit 37.2 % (36-46); Hemoglobin 13.1 g/dL (12.0-16.0); Mean Corpuscular HGB Conc 35.3 % (30-36); Mean Corpuscular Hemoglobin 32.2 PG (26-34); Mean Corpuscular Volume 91.2 fL (80-100); Platelet Count 460 X10^3/uL (150-400); Red Blood Cell Count 4.07 X10^6/uL (4.0-5.2); Red Cell Distribution Width 12.1 % (11.6-14.8); White Blood Cell Count 10.1 X10^3/uL (4.5-11.0)
[2021-04-24 09:24] LABS: BUN Creatinine Ratio 43.7 (6-22); Blood Urea Nitrogen 31 mg/dL (7-17); Calcium 9.8 mg/dL (8.4-10.2); Carbon Dioxide 35 mmol/L (22-32); Chloride 98 mmol/L (98-107); Estimated Glomerular Filt Rate > 60.0 mL/min (>60); Glucose 91 mg/dL (70-100); HEMOLYSIS < 15 (0-50); Sodium 135 mmol/L (137-145)
--- NOTE | 2021-04-24 13:24 | PM.PN.1 ---
Subjective Subjective Date Patient Seen: 04/24/21 Time Patient Seen: 08:00 Interval history: She feels her breathing continues to improve. However she continues to have slowly increasing oxygen requirement up to 50L at 55%. She is coughing think white liquid. She says she is unable to prone. Exam Vital Signs (past 8 hours): - 04/24/21 06:04 04/24/21 06:43 04/24/21 07:50 Temperature 96 F L Pulse Rate 55 L 56 L 78 Respiratory Rate 30 H 26 H 32 H Blood Pressure 99/68 Pulse Oximetry 98 97 95 04/24/21 08:10 04/24/21 10:00 Temperature 95.5 F L Pulse Rate 62 78 Respiratory Rate 28 H Blood Pressure 106/74 Pulse Oximetry 98 96 Fraction of Inspired Oxygen 55 Oxygen Delivery Method Heated High Flow Oxygen Flow Rate 50 Narrative Exam Narrative: GEN: moderate respiratory distress HEENT: moist mucous membranes, PERRL NECK: trachea midline, no JVD CV: regular rate and rhythm, no murmurs PULM: very diminished breath sounds bilaterally ABD: soft, nontender, nondistended, no organomegaly, normal bowel sounds EXT: warm and well perfused with no edema NEURO: awake, alert oriented PSYCH: pleasant SKIN: no rashes Objective Labs Result Diagrams: 04/24/21 08:57 04/24/21 08:57 Labs: Laboratory Results - last 24 hr 04/24/21 04/24/21 08:57 08:57 WBC 10.1 RBC 4.07 Hgb 13.1 Hct 37.2 MCV 91.2 MCH 32.2 MCHC 35.3 RDW 12.1 Plt Count 460 H Sodium 135 L Potassium 4.0 Chloride 98 Carbon Dioxide 35 H BUN 31 H Creatinine 0.71 Estimated GFR > 60.0 BUN/Creatinine Ratio 43.7 H Glucose 91 Calcium 9.8 PFSH Medical History Fibromyalgia Hypothyroid Reactive airway disease Social History household members: spouse and family Smoking Status: Never smoker Assessment & Plan Assessment & Plan narrative: Ms. Zelalem Cordova is a 50W with H reactive airway disease and hypothyroidism who presented with acute respiratory failure from covid pneumonia. 1. Acute hypoxemic respiratory failure from COVID pneumonia -patient is unfortunately unvaccinated -declines remdesivir -she agreed to baricitinib and dexamethasone -continues in ICU as she is on heated high flow and is full code -has history of reactive airway disease, continue beta agonists -consulting tele-cranberry [place] supervisor -Continue lovenox for dvt ppx 2. Hypothyroidism -continue home medications\ 3. Anxiety -continue home Xanax 4. Fibromyalgia -Continue home Cyclobenzaprine. Time Spent With Patient Critical Care time: I spent a total of [] minutes of critical care time on this patient's care today; this time is exclusive of procedural time.
[2021-04-24] MEDS: polyethylene glycoL 3350 17 GM POWD.PACK PO (15:27)
[2021-04-24] MEDS: DOCUSATE 100 MG CAPSULE PO ×2 (15:27→20:31)
[2021-04-24] MEDS: ALBUTEROL/IPRATROPIUM 3 ML AMPUL INH (17:55)
--- NOTE | 2021-04-24 20:09 | PM.ICURNDS ---
- :: Case was discussed w bedside staff via real time interactive two-way audiovisual telecommunication. Note: Pt doing slightly better, still on HFNC but weaned to 40% 40L. Still desturates to low 80s with exertion. Labs and meds reviewed. Would get PT/OT consults to see patient if they already havent. Would consider taking out de la paz cath if patient doesnt need it (pt seems to desaturate with exertion which is reason it is in now). If can be weaned off HFNC, or remains stable on current settings, can likely be downgraded out of ICU in next 1-2 days.
--- NOTE | 2021-04-24 20:50 | PC.NURSE ---
Addendum entered by Griselda Ortiz R.N. 04/25/21 05:27: 0525: Pt rested well overnight and maintained O2 sats >95% throughout. Original Note: 2044: Pt up to bedside commode, no bowel movement at this time. Desaturation into low 80s and increase in rate to 40s-50s with min exertion, recovered in less than 5 mins with 100% O2 via heated high flow device and rest. Pt currently at 40L 40% O2 via HHF. Lung bases remain coarse/diminished, pt having cough productive of thick white mucous. PT up in chair during assessment, assisted back to bed. Denies other complaints at present time. Will continue to monitor.
[2021-04-25] VITALS (14 sets, daily range): BP systolic 92–121; BP diastolic 59–79; PULSE 53–88; RESP 18–32; TEMP 36.2–36.6; O2SAT 94–98
[2021-04-25 04:59] LABS: Hematocrit 35.2 % (36-46); Hemoglobin 12.5 g/dL (12.0-16.0); Mean Corpuscular HGB Conc 35.4 % (30-36); Mean Corpuscular Hemoglobin 31.8 PG (26-34); Platelet Count 456 X10^3/uL (150-400); Red Blood Cell Count 3.92 X10^6/uL (4.0-5.2); Red Cell Distribution Width 12.1 % (11.6-14.8); White Blood Cell Count 10.8 X10^3/uL (4.5-11.0)
[2021-04-25 05:10] LABS: BUN Creatinine Ratio 40.8 (6-22); Blood Urea Nitrogen 31 mg/dL (7-17); Calcium 9.7 mg/dL (8.4-10.2); Carbon Dioxide 34 mmol/L (22-32); Chloride 97 mmol/L (98-107); Estimated Glomerular Filt Rate > 60.0 mL/min (>60); Glucose 87 mg/dL (70-100); HEMOLYSIS < 15 (0-50); Sodium 133 mmol/L (137-145)
[2021-04-25] MEDS: PANTOPRAZOLE DR 40 MG TABLET PO (05:43)
[2021-04-25] MEDS: LEVOTHYROXINE 50 MCG TABLET PO (07:50)
[2021-04-25] MEDS: ENOXAPARIN 40 MG/0.4 ML SYRINGE SUBCUT ×2 (08:49→21:38)
[2021-04-25] MEDS: BARICITINIB 2 MG TABLET 4 MG PO (08:49)
[2021-04-25] MEDS: DEXAMETHASONE 10 MG/ML VIAL 6 MG IV (08:50)
[2021-04-25] MEDS: guaiFENesin ER 600 MG TAB PO ×2 (08:50→21:45)
[2021-04-25] MEDS: ALPRAZolam 0.25 MG TABLET PO ×2 (08:50→21:38)
[2021-04-25] MEDS: polyethylene glycoL 3350 17 GM POWD.PACK PO (08:50)
[2021-04-25] MEDS: DOCUSATE 100 MG CAPSULE PO ×2 (08:50→21:39)
[2021-04-25] MEDS: IBUPROFEN 600 MG TABLET PO ×2 (08:51→21:45)
[2021-04-25] MEDS: FUROSEMIDE 20 MG/2 ML VIAL IV (08:51)
[2021-04-25] MEDS: ASCORBIC ACID 500 MG TABLET PO (08:52)
[2021-04-25] MEDS: LIOTHYRONINE 5 MCG TABLET PO ×2 (08:53→21:35)
[2021-04-25] MEDS: CHOLECALCIFEROL (VITAMIN D3) 400 UNIT TABLET PO (08:53)
--- NOTE | 2021-04-25 11:07 | OT.IP.EVAL ---
Current Diagnoses COVID-19 (04/19/21) Past Medical History (Last Reviewed 04/19/21 @ 17:49 by Aamir Dickey MD) Fibromyalgia Hypothyroid Reactive airway disease Occupational Therapy Inpatient Evaluation/Re-Eval M1 PT/OT-IP Prior Functional Status Start: 04/25/21 08:49 Freq: NEEDED Status: Active Protocol: Document 04/25/21 12:18 CGR (Rec: 04/25/21 12:30 CGR [id number]) Medical Review Prior Functional Status Medical History Reviewed Yes Communication WNL. No known or observed deficits Mobility and Gait Independent Activities of Daily Living and IADL's Independent Social History Household Members spouse,family Living Arrangements House Number of Floors (Floors) Two Floors Number of Stairs To Enter/Railing? 2 ALEXIS no rail. 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 M1 PT/OT-IP Prior Functional Status Start: 04/25/21 12:18 Freq: NEEDED Status: Active Protocol: Document 04/25/21 12:18 CGR (Rec: 04/25/21 12:30 CGR [id number]) Medical Review Prior Functional Status Medical History Reviewed Yes Communication WNL. No known or observed deficits Mobility and Gait Independent Activities of Daily Living and IADL's Independent Social History Household Members spouse,family Living Arrangements House Number of Floors (Floors) Two Floors Number of Stairs To Enter/Railing? 2 ALEXIS no rail. 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 M2 OT-IP Current Condition Start: 04/25/21 12:18 Freq: Status: Active Protocol: Document 04/25/21 12:18 CGR (Rec: 04/25/21 12:30 CGR [id number]) Occupational Therapy Current Condition Current Condition Evaluation Date 04/25/21 Treatment Diagnosis Acute hypoxic respiratory failure Diagnosis Onset Date 04/19/21 M3 OT- IP Subjective and Pain Start: 04/25/21 12:18 Freq: Status: Active Protocol: Document 04/25/21 12:18 CGR (Rec: 04/25/21 12:30 CGR [id number]) OT- Subjective Occupational Therapy Visit Type Type Initial Evaluation Visit Start Time 10:32 Visit Stop Time 11:07 Total Visit Minutes 35 Notes co-eval with P.T. Occupational Therapy Visit Comments Patient Comments I want to go home after all this OT Pain Assessment Pain When Pain Assessed At Rest Pain Present Pain Present Denied Pain M4 OT- IP ADL's Start: 04/25/21 12:18 Freq: Status: Active Protocol: Document 04/25/21 12:18 CGR (Rec: 04/25/21 12:30 CGR [id number]) OT [id number] Comments OT Self-Feeding Comments Not meal time OT ADL-Grooming Comments OT Grooming Comments Not performed OT ADL-Oral Care Comments Oral Care Comments Not performed OT ADL-Dressing General Eval Upper Body Dressing Ability Independent Areas Needing Assistance Socks Comments OT Dressing Comments seated in bed OT ADL-Toileting General Evaluation Toileting Ability Independent Devices Toileting Assistive Devices Commode Comments OT Toileting Comments attempted BM seated on BSC OT ADL-Bathing Comments OT Bathing Comments Not performed M5 OT- IP IADL's Start: 04/25/21 12:18 Freq: Status: Active Protocol: Document 04/25/21 12:18 CGR (Rec: 04/25/21 12:30 CGR [id number]) OT-Instrumental Activities of Daily Living Deficits IADL Deficits Identified No Deficits Home Safety Awareness Awareness of Need for Assistance at Home Good Awareness Ability to Problem Solve Emergency Able to Problem Solve Situations Medication Management Medication Management No Deficits Identified Money Management Money Management No Deficits Identified Meal Preparation Meal Preparation No Deficits Identified Infirmary Attendant Infirmary Attendant No Deficits Identified Driving Driving Comments 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 M6 OT- IP Functional Cognition Start: 04/25/21 12:18 Freq: Status: Active Protocol: Document 04/25/21 12:18 CGR (Rec: 04/25/21 12:30 CGR [id number]) Cognitive Factors Limiting Selfcare Function Cognitive Ability Level of Alertness Alert Patient Orientation Name,Age,Birthday,Month,Date, Year,Day of Week,Place, Situation Attention Span Ability Capable of Focused Attention, Capable of Sustained Attention Ability to Follow Commands Able to Follow Multi-Step Commands OT- Vision and Hearing OT- Hearing Assessment OT- Hearing Assessment WFL OT- Vision Assessment Visual Acuity Glasses For Reading Visual Attentiveness WFL Occular Pursuits WFL Visual Convergence WFL M7 OT- IP Mobility and Balance Start: 04/25/21 12:18 Freq: Status: Active Protocol: Document 04/25/21 12:18 CGR (Rec: 04/25/21 12:30 CGR [id number]) OT- Bed Mobility Assessment Rolling Level of Assistance Standby Assistance Supine to Sit Supine to Sit Assist Standby Assistance Scooting Scooting to Edge of Bed Standby Assistance OT-Transfer Assessment Sit to and From Stand Sit to and from Stand Standby Assistance Transfers Transfer Ability Standby Assistance Technique Transfer Destination Bed,Bedside Commode,Chair Transfer Technique Stand Step Pivot Devices Transfer Assistive Devices None Comments Mobility Comments Pt was able to move around the room without AD but with limited endurance. Pt on 15L NC at time of assessment. OT- Gait Assessment Gait Gait Assistance Required: Standby Assistance OT- Balance Assessment Sitting Balance and Reactions Static Sitting Balance Ability Normal Dynamic Sitting Balance Ability Normal Standing Balance and Reactions Static Standing Balance Ability Good Dynamic Standing Balance Ability Good M8 OT- IP Objective Assessments Start: 04/25/21 12:18 Freq: Status: Active Protocol: Document 04/25/21 12:18 CGR (Rec: 04/25/21 12:30 CGR [id number]) OT Gross Range of Motion Upper Extremity Range of Motion Assessment Within Functional Limits OT Strength Upper Extremity Strength Assessment Within Functional Limits Comments Strength Comments grossly 4/5 OT- Coordination Assessment Upper Extremity Finger to Nose Test Within Functional Limits Finger Tapping Test Within Functional Limits OT-Muscle Tone Assessment Muscle Tone WNL Yes OT Sensation Assessment Edema Edema Absent M9 OT- IP Assessment and Plan Start: 04/25/21 12:18 Freq: Status: Active Protocol: Document 04/25/21 12:18 CGR (Rec: 04/25/21 12:30 CGR [id number]) OT Summary Assessment and Plan Potential Rehabilitation Potential Excellent Analytic Complexity at Evaluation Low Summary OT Impairments Balance,Functional Mobility, Grooming,Dressing,Toileting, Bathing,Toilet Transfers, Shower Transfers,Activity Tolerance Progress Towards Goals Slow Progress due to Activity Tolerance Assessment Summary Pt presents as a low complexity evaluation s/p admit for acute hypoxic respiratory failur with COVID. Pt is mobilizing well at this time but is limited with endurance. O2 stats dropped to the low 80s with mobility but increased with sitting and deep breathing activities. Pt will continue to benefit from 1-2 more sessions with OT to educate on home safety and energy conservation. Recommend d/c home with ready. Goals Grooming Goal Independent Dressing Goal Independent Toileting Goal Independent Bathing Goal Independent Toilet Transfer Goal Independent Shower Transfer Goal Independent Days to Meet Goals 2 Frequency of Treatment Frequency Of Treatment Once a Day Treatment Plan OT Treatment Plan ADL Training,Functional Mobility,Therapeutic Exercises ,Patient/Family Education, Discharge Planning Other Treatment Recommendations and Next shower and education on energy Treatment Focus conservation Discharge Recommendations OT Discharge Recommendations Home with Assistance Home Equipment Needs shower chair Transportation Needs at Discharge Private Vehicle
--- NOTE | 2021-04-25 11:07 | PT.IIE ---
Current Diagnoses COVID-19 (04/19/21) Medical History (Last Reviewed 04/19/21 @ 17:49 by Aamir Dickey MD) Fibromyalgia Hypothyroid Reactive airway disease Physical Therapy Inpatient Evaluation/Re-Eval M1 PT/OT-IP Prior Functional Status Start: 04/25/21 08:49 Freq: NEEDED Status: Active Protocol: Document 04/25/21 11:07 AW (Rec: 04/25/21 12:08 AW [id number]) Medical Review Prior Functional Status Medical History Reviewed Yes Communication WNL. No known or observed deficits Mobility and Gait Independent Activities of Daily Living and IADL's Independent Social History Household Members spouse,family Living Arrangements House Number of Floors (Floors) Two Floors Number of Stairs To Enter/Railing? 2 ALEXIS no rail. 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 M2 PT-IP Current Condition Start: 04/25/21 08:49 Freq: NEEDED Status: Active Protocol: Document 04/25/21 11:07 AW (Rec: 04/25/21 12:08 AW [id number]) Physical Therapy Current Condition Current Condition Evaluation Date 04/25/21 Treatment Diagnosis covid PNA; acute hypoxic respiratory failure; impaired mobility Onset Date 04/19/21 M3 PT-IP Subjective Start: 04/25/21 08:49 Freq: NEEDED Status: Active Protocol: Document 04/25/21 11:07 AW (Rec: 04/25/21 12:08 AW [id number]) Subjective Physical Therapy Visit Type Type Initial Evaluation Visit Start Time 10:32 Visit Stop Time 11:07 Total Visit Minutes 35 Notes Co-eval with OT due to pt's low activity tolerance. Pt weaned to 15L O2 via NC at 40% FiO2 just prior to therapy session. Number of COMMUNICATIONS BILLING ANALYST Visits 0 Physical Therapy Visit Comments Patient Comments Pt is anxious about moving with high O2 needs but is willing to participate with therapy. Patient Goals Return home at discharge with spouse support. Therapy Pain Assessment Pain When Pain Assessed During Mobility Pain Present Pain Present Pain Reported Location chest Scale Used not quantified; states less bronchial spasm than yesterday M4 PT-IP Mobility and Gait Start: 01/24/22 08:49 Freq: NEEDED Status: Active Protocol: Document 04/25/21 11:07 AW (Rec: 04/25/21 12:24 AW [id number]) PT-Bed Mobility Assessment Supine to Sit Supine to Sit Standby Assistance,Head of Bed Elevated Scooting Scooting to Edge of Bed Standby Assistance PT-Transfer Assessment Sit to and From Stand Sit to and from Stand Contact Guard Assistance,Use of Upper Extremities Equipment Transfer Assistive Device None Orthotic/Prosthetic Devices or Brace: No Transfers Transfer Destination Chair,Bedside Commode Transfer Technique pt amb without AD Transfer Ability Level of Assist Contact Guard Assistance Comments Mobility Comments Pt was lying in bed as PT and OT arrived. SpO2 was 95% on 15L O2 via NC with FiO2 40%. She stated she has an adjustable bed at home. If she stays downstairs on the couch , she can prop herself up with pillows or wedges. She does not tolerate lying supine due to restrictive airway disease. With HOB elevated, she completed supine to sit SBA and sat EOB with UE support and was able to concentrate on diaphragmatic breathing, maintaining SpO2 93-95%. She stood and transferred to C CGA. She voided and completed pericare without assist. PT and OT assisted with line management as pt stood and transferred to the chair CGA. SpO2 dropped to 89% and recovered to 94% within two minutes. Pt was positioned on the chair with call light, room phone, and personal belongings within reach. Gait Assessment Gait Gait Assistance Required: Contact Guard Assist Comments Gait Comments Steps taken during transfers only. Pt did not feel up to longer distance ambulation due to anxiety and concern for high O2 needs. Stair Climbing Assessment Comments Stair Climbing Comments Not assessed. PT-Balance Assessment Sitting Balance and Reactions Static Sitting Balance Ability Good Dynamic Sitting Balance Ability Good Standing Balance and Reactions Static Standing Balance Ability Good Dynamic Standing Balance Ability Good Device Used no AD M5 PT-IP Objective Assessments Start: 04/25/21 08:49 Freq: NEEDED Status: Active Protocol: Document 04/25/21 11:07 AW (Rec: 04/25/21 12:24 AW [id number]) Orientation Orientation/Cognition Level of Alertness Alert Orientation Name,Day of Week,Place, Situation Language Function Ability No Deficits Noted Safety Awareness Understands Safety Issues Memory Description No Deficits Noted Gross Range of Motion Upper Extremity ROM Assessment Within Functional Limits Lower Extremity ROM Assessment Within Functional Limits Strength Lower Extremity Strength Assessment Within Functional Limits Comments Strength Comments BLE globally 4+/5 Coordination Assessment Gross Coordination Gross Coordination WNL Sensation Assessment Sensation Gross Sensation WNL M6 PT-IP Treatment Start: 04/25/21 08:49 Freq: NEEDED Status: Active Protocol: Document 04/25/21 11:07 AW (Rec: 04/25/21 12:24 AW [id number]) Physical Therapy Treatment Education Education Provided Safety M7 PT-IP Assessment and Plan Start: 04/25/21 08:49 Freq: NEEDED Status: Active Protocol: Document 04/25/21 11:07 AW (Rec: 04/25/21 12:24 AW [id number]) PT Summary Assessment and Plan Potential Rehabilitation Potential Good Status of Condition at Evaluation Evolving Summary Impairments Pain,Strength,Transfers,Gait, Activity Tolerance Assessment Summary Yesica is a 50 yo woman admitted with COVID pneumonia, hypoxic respiratory failure. She is independent in all regards at baseline. At time of evaluation, pt was on 15L O2 via NC with FiO2 40%. She completed all mobility SBA/CGA but did not tolerate much activity. SpO2 dropped to 89% during transfers. Pt hopes to go home at discharge and does have her spouse to assist. Will continue to assess for safe discharge plan but home with assist is likely. Pt would benefit from continued acute PT to progress her activity tolerance and to mitigate the risks of continued immobility. Goals Bed Mobility Goal Independent Transfer Goal Independent Gait Goal Independent Gait Distance 200 Other Goals - up/down 2 steps without rail SBA Days to Meet Goals 5 Frequency of Treatment Frequency Of Treatment Once a Day Treatment Plan Physical Therapy Treatment Plan Bed Mobility Training,Transfer Training,Gait Training, Therapeutic Exercise,Discharge Planning Other Recommendations and Next Treatment consider 2-minute step test or Focus another measure of aerobic endurance; progress to gait as tolerated Precautions Other Precautions COVID (+) Recommendations To Nursing Amount of Assist Needed Standby Assistance Discharge Recommendations PT Discharge Recommendations Home with Assistance Transportation Needs at Discharge Private Vehicle
[2021-04-25] MEDS: SODIUM CHLORIDE 0.9% FLUSH 10 ML IV ×2 (11:11→21:35)
--- NOTE | 2021-04-25 12:36 | PC.NURSE ---
Addendum entered by Radha Humphrey R.N. 04/25/21 16:27: PT DECREASED 4L HFNC SPO2=93-96% PT EXCITED FOR POTENTIAL DC TOMORROW Original Note: MUCH TIME SPENT WITH PT ADDRESSING HER ANXIETY LEVEL AND HER LIMITING HERSELF - ABLE TO WEAN HHFNC FROM 40L/40%DOWN TO 30L and then initiated hfnc at 15L and able to wean that down to 8L nc which pt is at 100% spo2 at present- up to bsc for bm and small void post catheter removal - lungs with bilat crackles - pt doing very well- has declined shower until maybe before hs marleni
--- NOTE | 2021-04-25 12:54 | P.TELICUPN_ITS ---
Subjective Subjective :: This patient was seen via real time interactive two-way audiovisual telecommunication. Pateint improving, to be swithced to ventimask. Otherwise tolerating PO and doing well with PT Current Medications Current Medications Medications: Home Medications albuterol sulfate 90 mcg/actuation aerosol inhaler 2 inh INHALATION Q6HR PRN 04/19/21 [History Confirmed 04/19/21] doxycycline hyclate 100 mg tablet 100 mg PO BID 04/19/21 [History Confirmed 04/19/21] fluvoxamine 50 mg tablet 50 mg PO BID 04/19/21 [History Confirmed 04/19/21] levothyroxine 50 mcg tablet (Synthroid) 50 mcg PO QAM 04/19/21 [History Confirmed 04/19/21] liothyronine 5 mcg tablet 5 mcg PO BID 04/19/21 [History Confirmed 04/19/21] Visit Medications (administered) Generic Name Dose Route Start Last Admin Trade Name Freq PRN Reason Stop Dose Admin Acetaminophen 650 mg 04/19/21 16:41 04/19/21 21:17 Acetaminophen 325 Mg Tablet PO 650 mg Q6HR PRN Administration Fever/Mild Pain (1-3) Albuterol/Ipratropium 3 ml 04/19/21 16:43 04/24/21 17:55 Albuterol/Ipratropium 3 Ml Ampul INH 3 ml RTQ4HR PRN Administration Shortness Of Breath Alprazolam 0.25 mg 04/19/21 20:37 04/25/21 08:50 Alprazolam 0.25 Mg Tablet PO 0.25 mg Q6H PRN Administration Anxiety Ascorbic Acid 500 mg 04/23/21 09:00 04/25/21 08:52 Ascorbic Acid 500 Mg Tablet PO 500 mg DAILY JESUS Administration Cyclobenzaprine HCl 10 mg 04/23/21 13:26 04/24/21 20:31 Cyclobenzaprine 10 Mg Tablet PO 10 mg Q8HR PRN Administration Spasms Dexamethasone 6 mg 04/20/21 09:00 04/25/21 08:50 Dexamethasone 10 Mg/Ml Vial IV 6 mg DAILY JESUS Administration Docusate Sodium 100 mg 04/24/21 14:30 04/25/21 08:50 Docusate 100 Mg Capsule PO 100 mg BID JESUS Administration Enoxaparin Sodium 40 mg 04/19/21 21:00 04/25/21 08:49 Enoxaparin 40 Mg/0.4 Ml Syringe SUBCUT 40 mg BID JESUS Administration Furosemide 20 mg 04/24/21 09:00 04/25/21 08:51 Furosemide 20 Mg/2 Ml Vial IV 20 mg DAILY JESUS Administration Guaifenesin 600 mg 04/22/21 11:53 04/25/21 08:50 Guaifenesin Er 600 Mg Tab PO 600 mg Q12HR PRN Administration Cough Ibuprofen 600 mg 04/21/21 13:19 04/25/21 08:51 Ibuprofen 600 Mg Tablet PO 600 mg Q6HR PRN Administration Fever/Mild Pain (1-3) Levothyroxine Sodium 50 mcg 04/20/21 09:30 04/25/21 07:50 Levothyroxine 50 Mcg Tablet PO 50 mcg DAILY JESUS Administration Liothyronine Sodium 5 mcg 04/20/21 10:45 04/25/21 08:53 Liothyronine 5 Mcg Tablet PO 5 mcg BID JESUS Administration Magnesium Oxide 400 mg 04/22/21 11:53 04/24/21 08:21 Magnesium Oxide 400 Mg Tablet PO 400 mg DAILY PRN Administration Constipation Pantoprazole Sodium 40 mg 04/23/21 06:00 04/25/21 05:[address] 40 Mg Tablet PO 40 mg 0600 JESUS Administration Polyethylene Glycol 17 gm 04/24/21 14:30 04/25/21 08:50 Polyethylene Glycol 3350 17 Gm Powd.Pack PO 17 gm DAILY JESUS Administration Sodium Chloride 10 ml 04/19/21 21:00 04/25/21 11:11 Sodium Chloride 0.9% Flush IV 10 ml BID JESUS Administration Sodium Chloride 1 spray 04/20/21 10:10 04/20/21 10:51 Sodium Chloride Nasal [place] NASAL 1 spray PRN PRN Administration Congestion Vitamin D 400 unit 04/23/21 09:00 04/25/21 08:53 Cholecalciferol (Vitamin D3) 400 Unit Tablet PO 400 unit DAILY JESUS Administration Objective Ventilator Parameters: Ventilator Settings FiO2 49 Labs Result Diagrams: 04/25/21 04:45 04/25/21 04:45 Labs: Laboratory Results - last 24 hr 04/19/21 04/25/21 04/25/21 13:56 04:45 04:45 WBC 10.8 RBC 3.92 L Hgb 12.5 Hct 35.2 L MCV 90.0 MCH 31.8 MCHC 35.4 RDW 12.1 Plt Count 456 H ABG pH 7.45 ABG pCO2 34.0 L ABG pO2 71 L ABG HCO3 24 ABG Total CO2 25 ABG O2 Saturation 95 ABG Base Excess 0.0 FiO2 39 Sodium 133 L Potassium 4.0 Chloride 97 L Carbon Dioxide 34 H BUN 31 H Creatinine 0.76 Estimated GFR > 60.0 BUN/Creatinine Ratio 40.8 H Glucose 87 Calcium 9.7 Exam Vital Signs (past 8 hours): - 04/25/21 06:03 04/25/21 07:49 04/25/21 09:50 Pulse Rate 53 L 82 79 Respiratory Rate 28 H 22 22 Blood Pressure 116/75 Pulse Oximetry 98 94 96 04/25/21 10:45 04/25/21 11:25 Pulse Rate 88 81 Respiratory Rate 32 H 20 Blood Pressure 92/59 L Pulse Oximetry 98 95 Fraction of Inspired Oxygen 40 Oxygen Delivery Method High Flow Nasal Cannula Oxygen Flow Rate 10 Narrative Exam Narrative: Surrogate for exam is primary team Assessment & Plan Assessment & Plan narrative: Acute hypoxemic Resp failure due to COVID 19 ARDS - resolving Plan transtion to venti mask as toelrated maintian o2 sat from 88-92 % map at goal encourage good PO intake trned bmp monitor UO, goal negatrive balance cont baricitnib and dexamethasone monitor off abx PT/OT if she decompenstates, restart hi flow NC, consider cpap CCT 35 min Time Spent With Patient Critical Care time: I spent a total of [] minutes of critical care time on this patient's care today; this time is exclusive of procedural time.
--- NOTE | 2021-04-25 13:13 | PM.PN.1 ---
Subjective Subjective Date Patient Seen: 04/25/21 Time Patient Seen: 08:00 Interval history: Today she feels quite a bit better. Less short of breath, and more energy. Exam Vital Signs (past 8 hours): - 04/25/21 06:03 04/25/21 07:49 04/25/21 09:50 Pulse Rate 53 L 82 79 Respiratory Rate 28 H 22 22 Blood Pressure 116/75 Pulse Oximetry 98 94 96 04/25/21 10:45 04/25/21 11:25 Pulse Rate 88 81 Respiratory Rate 32 H 20 Blood Pressure 92/59 L Pulse Oximetry 98 95 Fraction of Inspired Oxygen 40 Oxygen Delivery Method High Flow Nasal Cannula Oxygen Flow Rate 10 Narrative Exam Narrative: GEN: moderate respiratory distress HEENT: moist mucous membranes, PERRL CV: regular rate and rhythm, no murmurs PULM: very diminished breath sounds bilaterally ABD: soft, nontender, nondistended, no organomegaly, normal bowel sounds Objective Labs Result Diagrams: 04/25/21 04:45 04/25/21 04:45 Labs: Laboratory Results - last 24 hr 04/19/21 04/25/21 04/25/21 13:56 04:45 04:45 WBC 10.8 RBC 3.92 L Hgb 12.5 Hct 35.2 L MCV 90.0 MCH 31.8 MCHC 35.4 RDW 12.1 Plt Count 456 H ABG pH 7.45 ABG pCO2 34.0 L ABG pO2 71 L ABG HCO3 24 ABG Total CO2 25 ABG O2 Saturation 95 ABG Base Excess 0.0 FiO2 39 Sodium 133 L Potassium 4.0 Chloride 97 L Carbon Dioxide 34 H BUN 31 H Creatinine 0.76 Estimated GFR > 60.0 BUN/Creatinine Ratio 40.8 H Glucose 87 Calcium 9.7 PFSH Medical History Fibromyalgia Hypothyroid Reactive airway disease Social History household members: spouse and family Smoking Status: Never smoker Assessment & Plan Assessment & Plan narrative: Ms. Zelalem Cordova is a 50W with H reactive airway disease and hypothyroidism who presented with acute respiratory failure from covid pneumonia. 1. 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 Hypothyroidism -continue home medications\ 3. Anxiety -continue home Xanax 4. Fibromyalgia -Continue home Cyclobenzaprine. Time Spent With Patient Critical Care time: I spent a total of [] minutes of critical care time on this patient's care today; this time is exclusive of procedural time.
--- NOTE | 2021-04-25 15:00 | CM.DPC ---
DCP Cont: Patient worked with P.T. today. Plan is home when stable with spouse assist. Patient continues to struggle with anxiety, due to her oxygen needs. Nurse, Radha, indicated that she had been able to spend time with patient today, and was able to get her oxygen level down. She anticipates, she could be ready for discharge withing the next couple of days. P: DCP to continue to follow for any needs. Plan is home when stable, but it is uncertain if she will need home oxygen. Yasmin Connelly RN/Neurosurgeon
[2021-04-25] MEDS: CYCLOBENZAPRINE 10 MG TABLET PO (21:38)
[2021-04-26] MEDS: MAGNESIUM OXIDE 400 MG TABLET PO (06:07)
[2021-04-26] MEDS: LEVOTHYROXINE 50 MCG TABLET PO (06:07)
[2021-04-26] MEDS: PANTOPRAZOLE DR 40 MG TABLET PO (06:07)
[2021-04-26] MEDS: ALPRAZolam 0.25 MG TABLET PO ×2 (07:59→14:42)
[2021-04-26] MEDS: guaiFENesin ER 600 MG TAB PO (08:00)
[2021-04-26] MEDS: ASCORBIC ACID 500 MG TABLET PO (08:27)
[2021-04-26] MEDS: DEXAMETHASONE 10 MG/ML VIAL 6 MG IV (08:27)
[2021-04-26] MEDS: ENOXAPARIN 40 MG/0.4 ML SYRINGE SUBCUT (08:27)
[2021-04-26] MEDS: BARICITINIB 2 MG TABLET 4 MG PO (08:28)
[2021-04-26] MEDS: LIOTHYRONINE 5 MCG TABLET PO (08:29)
[2021-04-26] MEDS: CHOLECALCIFEROL (VITAMIN D3) 400 UNIT TABLET 800 UNIT PO (08:30)
[2021-04-26 09:00] VITALS: BP 114/76; PULSE 78; RESP 24; TEMP 36.6; O2SAT 97
--- NOTE | 2021-04-26 11:21 | PC.NURSE ---
PT PREPPING FOR DISCHARGE - ABLE TO WEANED DOWN TO 3L NC AT REST WITH PRESNT SPO2 98% - PT STATE I CANNOT WAIT TO BE HOME - SHE IS REQUESTING FEW XANAX RX AT DISCHARGE SHE IS UNABLE TO SEE HER PCP UNTIL END OF WEEK- THIS WAS RELAYED TO MD, UPON ACTIVITY SHE WILL DESAT TO APPROX 88-89% WITH THE LOWEST THIS RN WITNESSED WAS 87% WITH RAPID IMPROVEMENT TO MID 90'S - AND THAT IS WITH ACTIVITY- MOVING BOWELS/BLADDER REGULARLY, REQUEST TO RT FOR HOME O2 RECOMMENDATIONS
[2021-04-26 12:00] VITALS: BP 125/71; PULSE 77; RESP 18; TEMP 36.5; O2SAT 94
--- NOTE | 2021-04-26 12:22 | PT-IP ANOTE ---
Attempted to see pt at 12:22, hold per RN as pt is about to d/c home and has been moving around in room.
--- NOTE | 2021-04-26 13:24 | OT.IPNOTE ---
Pt going home today and able to give nursing energy conservation information sheet to give to the pt. No charge
--- NOTE | 2021-04-26 13:29 | PM.DS.1 ---
History of Present Illness History of Present Illness Chief complaint: SOB Narrative: Ms. Zelalem Cordova is a 50W with PMH reactive airway disease, hypothyroidism who comes to the hospital with shortness of breath. She notes she has had nearly two weeks of symptoms. Sh previous had fever, congestion, cough. No she is having worsening shortness of breath, and pain with taking a deep breath. No nausea/vomiting. No diarrhea, No urinary symptoms. Not producing much phlegm. No edema. She has reactive airway disease, but does not need inhalers. She has family ill with COVID, she has not been vaccinated. She has been recently prescribed antibiotics, and possibly using budesonide and dexamethasone. In the ED workup was done she had temp of 97.9, hr 80, rr 40, bp 130s/80s, o2 sat 86%. She was placed on nasal cannula oxygen. She continued to have high work of breathing was placed on heated high flow. Labs notable for WBC 9.2, d-dimer 592, procal 0.06, creatinine 0.71, lactate 2.9, trop negative, ldh 919, ferritin 421. COVID positive. Chest xray showed bilateral opacities. She was ordered for dexamethasone, she declined remdesivir. She was admitted for further treatment. 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 Acute hypoxemic respiratory failure from COVID pneumonia 2. Hypothyroidism 3. Anxiety 4. Fibromyalgia Hospital Course: Ms. Zelalem Cordova was admitted with respiratory failure from COVID pneumonia. She was requiring heated high flow oxygen. She improved slowly but steadily. She was on baricitinib and dexamethasone and declined remdesivir. On day of discharge she was still requiring oxygen with 2L at rest and 5L with activity. She is encouraged to isolate for a week. She is recommended to follow up and get the COVID vaccine when her symptoms resolve. Exam Vital Signs (past 8 hours): - 04/26/21 09:00 Temperature 97.8 F Pulse Rate 78 Respiratory Rate 24 Blood Pressure 114/76 Pulse Oximetry 97 Fraction of Inspired Oxygen 96 Oxygen Delivery Method Nasal Cannula Oxygen Flow Rate 4 Narrative Exam Narrative: GEN: no acute distress HEENT: moist mucous membranes, PERRL CV: regular rate and rhythm, no murmurs PULM: clear breath sounds bilaterally ABD: soft, nontender, nondistended, no organomegaly, normal bowel sounds Objective Labs Result Diagrams: 04/25/21 04:45 04/25/21 04:45 [facility] Medical History Fibromyalgia Hypothyroid Reactive airway disease Social History household members: spouse and family Smoking Status: Never smoker Discharge Plan Discharge Plan Patient Disposition: Home Provider Discharge Comment: Ms. Zelalem Cordova came in to the hospital with COVID pneumonia. She improved with treatment. On discharge she was still needing oxygen between 2-4L depending on rest and activity. She should remain isolated as much as possible for another week to not infect others. She is recommended to get the vaccine for COVID when she is asymptomatic. Discharge orders & Medications Prescriptions: New alprazolam 0.25 mg Tablet 0.25 mg PO Q6H PRN (Reason: Anxiety) Qty: 8 0RF Continued liothyronine 5 mcg tablet 5 mcg PO BID 0RF Label Comments: TAKE 1 TABLET BY MOUTH TWICE DAILY levothyroxine [Synthroid] 50 mcg tablet 50 mcg PO QAM 0RF fluvoxamine 50 mg tablet 50 mg PO BID 0RF Label Comments: TAKE 1 TABLET BY MOUTH TWICE DAILY FOR 10 DAYS Rx Instructions: for post viral syndrome started 04/11 x 14 days albuterol sulfate 90 mcg/actuation HFA aerosol inhaler 2 inh INHALATION Q6HR PRN (Reason: Wheezing) 0RF Label Comments: INHALE 1 PUFF INTO THE LUNGS EVERY 4 HOURS NEEDED Discontinued doxycycline hyclate 100 mg tablet 100 mg PO BID 0RF Label Comments: TAKE 1 TABLET BY MOUTH TWICE DAILY FOR 5 DAYS Rx Instructions: x 5 days; started 04/15. Follow up/Referrals: Prisca Rosado ND [Primary Care Provider] - Discharge Data Primary Care Provider: Prisca Rosado
--- NOTE | 2021-04-26 15:04 | PC.NURSE ---
Addendum entered by Radha Humphrey R.N. 04/26/21 15:36: discharged to home at this time- answered all her questions to her and her spouses satisfaction Original Note: preparing pt for discharge to home with home o2 ordered for 2-4 L BEV- TAINA TO MEET PT AND SPOUSE AT THEIR HOME TO SET UP - DISCHARGED WITH HOME RX AND O2 TANK SET AT 3LNC- PT EXCITED TO BE DC HOME AND WILL HAVE NEW RX FOR XANAX PRN
== END 2021-04-26 15:30 | disposition home or self-care (01) | DRG 177 ==
LOC: ED 13:27 → AC 15:09 → ICU 16:06
PROVIDERS: Internal Medicine Critical Care Medicine; Admitting Provider Internal Medicine; Emergency Provider Emergency Medicine; Family Provider Acupuncturist; PCP Acupuncturist; Referring Provider Emergency Medicine; Visit Provider Internal Medicine
DX: U07.1 COVID-19 (principal); J12.82 Pneumonia due to coronavirus disease 2019; J96.01 Acute respiratory failure with hypoxia; F41.9 Anxiety disorder, unspecified; E03.9 Hypothyroidism, unspecified; M79.7 Fibromyalgia; J45.909 Unspecified asthma, uncomplicated
CPT/HCPCS: 36415; 36569; 36592; 36600; 71045; 80048; 80053; 82550; 82728; 82805; 83605; 83615; 83880; 84145; 84484; 85025; 85027; 85379; 86140; 87040; 87635; 87797; 93005; 93010; 94618; 94640; 94760; 94762; 96374; 97161; 97165; 97530; 99285; 99291; C9803; C9113; J1100; J1650; J1940; J7613

== ENCOUNTER 2022-09-13 15:06 | Emergency (ER) | payer SELFPAY ==
[2021-04-19 17:54] VITALS: BMI 24.1
[2022-09-13] VITALS (20 sets, daily range): BP systolic 161–181; BP diastolic 95–113; PULSE 73–97; RESP 16–20; TEMP 36.4; O2SAT 95–100; BMI 25.0
[2022-09-13 15:42] LABS: Add Manual Diff / Slide Review NO; Basophils Absolute Auto 100 /uL (0-100); Basophils Percent Auto 0.6 % (0-2); Eosinophils Absolute Auto 0 /uL (0-450); Eosinophils Percent Auto 0.2 % (2-4); Hematocrit 40.4 % (36-46); Lymphocytes Absolute Auto 900 /uL (1100-4500); Lymphocytes Percent Auto 9.6 % (25-40); Mean Corpuscular HGB Conc 34.7 % (30-36); Mean Corpuscular Hemoglobin 31.5 PG (26-34); Mean Corpuscular Volume 90.9 fL (80-100); Monocytes Absolute Auto 700 /uL (0-900); Monocytes Percent Auto 7.4 % (3-14); Neutrophils Absolute Auto 8100 /uL (1500-7000); Neutrophils Percent Auto 82.2 % (50-75); Platelet Count 334 X10^3/uL (150-400); Red Blood Cell Count 4.45 X10^6/uL (4.0-5.2); Red Cell Distribution Width 12.5 % (11.6-14.8); White Blood Cell Count 9.8 X10^3/uL (4.5-11.0)
[2022-09-13 15:49] LABS: Bilirubin Urine UA NEGATIVE (NEGATIVE); Color Urine UA YELLOW; Glucose Urine UA NEGATIVE (Negative); Ketones Urine UA 1+ (NEGATIVE); Leukocyte Esterase Urine UA NEGATIVE (NEGATIVE); Nitrite Urine UA NEGATIVE (Negative); Occult Blood Urine UA NEGATIVE (Negative); Protein Urine UA NEGATIVE (Negative); Specific Gravity Urine UA 1.015 (1.000-1.035); Urobilinogen Urine UA 0.2 E.U./dL (0.2)
[2022-09-13 15:50] LABS: Appearance Urine UA Slightly Cloudy; pH Urine UA 7.5 (4.5-8.0)
[2022-09-13 15:53] LABS: Pregnancy Test Urine Negative (Negative)
[2022-09-13 16:01] LABS: Alanine Aminotransferase 28 IU/L (<35); Albumin 4.5 g/dL (3.5-5.0); Albumin Globulin Ratio 1.4 (1.0-2.8); Alkaline Phosphatase 88 U/L (38-126); Aspartate Aminotransferase 29 IU/L (14-36); BUN Creatinine Ratio 17.1 (6-22); Bilirubin Total 0.3 mg/dL (0.2-1.3); Blood Urea Nitrogen 12 mg/dL (7-17); Carbon Dioxide 25 mmol/L (22-32); Chloride 100 mmol/L (98-107); Estimated Glomerular Filt Rate > 60 mL/min (>60); Globulin 3.3 g/dL (1.7-4.1); Glucose 108 mg/dL (70-100); HEMOLYSIS < 15 (0-50); Lipase 60 U/L (23-300); Potassium 3.9 mmol/L (3.4-5.1); Sodium 136 mmol/L (137-145); Total Protein 7.8 g/dL (6.3-8.2)
[2022-09-13] MEDS: ONDANSETRON 4 MG/2 ML INJ IV ×2 (16:30→20:23)
[2022-09-13 17:00] LABS: Campylobacter Not Detected (Not Detect); Clostridium difficile toxin AB Not Detected (Not Detect); Enteroaggregative E.coli Not Detected (Not Detect); Enteropathogenic E.coli Not Detected (Not Detect); Enterotoxigenic E.coli It/st Not Detected (Not Detect); Plesiomonsa shigelloides Not Detected (Not Detect); Salmonella Not Detected (Not Detect); Shiga-like toxin-prod E.coli Not Detected (Not Detect); Vibrio Not Detected (Not Detect); Vibrio cholerae Not Detected (Not Detect); Yersinia enterocolitica Not Detected (Not Detect)
[2022-09-13 17:01] LABS: Adenovirus F 40/41 Not Detected (Not Detect); Astrovirus Not Detected (Not Detect); Cryptosporidium Not Detected (Not Detect); Cyclospora cayetanensis Not Detected (Not Detect); Entamoeba histolytica Not Detected (Not Detect); Giardia lamblia Not Detected (Not Detect); Norovirus GI/GII Not Detected (Not Detect); Rotavirus A Not Detected (Not Detect); Sapovirus Not Detected (Not Detect); Shigella/Enteroinvasive E.coli Not Detected (Not Detect)
[2022-09-13] MEDS: SODIUM CHLORIDE 0.9% 1,000 ML 1000 ML IV (17:10)
[2022-09-13] MEDS: METOCLOPRAMIDE 10 MG/2 ML INJ IV (17:10)
--- NOTE | 2022-09-13 18:27 | DI.CT.S_ITS ---
PROCEDURE: CT ABDOMEN PELVIS WO CON INDICATIONS: Generalized abdominal pain with distention TECHNIQUE: Noncontrast 5 mm thick sections acquired from the diaphragms to the symphysis. 5 mm coronal and sagittal reformats were then performed. For radiation dose reduction, the following was used: automated exposure control, adjustment of mA and/or kV according to patient size. COMPARISON: None. FINDINGS: Image quality: Excellent. ABDOMEN: Lung bases: Scattered bibasilar ground-glass opacities may be secondary to hypoinflation. Stable right middle lobe subpleural scar or ground-glass nodule. No pleural effusion. Normal size heart. Tiny hiatal hernia. Solid organs: Normal size liver with slight steatosis. No visible mass. Normal gallbladder without calcifications. No visible biliary dilatation. Normal pancreas, spleen, adrenal glands, and kidneys. No ureteral dilatation. Peritoneum and bowel: There is decompression and mild inflammation involving the sigmoid colon for of fairly long segment. There is a questionable partially exophytic nodular diverticulum arising cranially seen on the coronal image 40/4. Proximal to this, there is liquid stool throughout the colon and air-fluid levels. Stomach and small bowel loops are decompressed. Nodes and vessels: No retroperitoneal or mesenteric adenopathy by size criteria. Aorta and inferior vena cava are normal in caliber. Miscellaneous: No ventral hernias. PELVIS: Genitourinary: The uterus is anteverted and retroflexed. There are scattered calcifications and a lobulated margin suggesting uterine fibroids. Ovaries are not well seen on CT. The urinary bladder is partially decompressed. Miscellaneous: No inguinal hernias or adenopathy. Bones: Bilateral L5 pars defects. Severe L5-S1 disc height loss and grade 1 anterolisthesis. IMPRESSION: 1. Probably partially obstructing inflammatory change in the sigmoid colon for which differential diagnosis includes diverticulitis, infectious colitis, less likely neoplasm. Colonoscopy is recommended after acute illness resolves. 2. Mild hepatic steatosis. 3. Probable fibroid uterus. Dictated by: Clarissa Rob M.D. on 09/13/2022 at 19:20 Approved by: Clarissa Rob M.D. on 09/13/2022 at 19:26
--- NOTE | 2022-09-13 18:27 | ED.GENADULT ---
HPI - General Adult General Chief complaint: Abdominal Pain Stated complaint: abd pain Time Seen by Provider: 09/13/22 18:00 Source: patient Mode of arrival: Ambulatory Limitations: no limitations History of Present Illness HPI narrative: Patient is a 52-year-old female. Last week had an episode of sharp abdominal pain with some diarrhea but that resolved for a couple days. Just over 24 hours ago she had return of lower abdominal pain and cramping. Is also having nausea. No vomiting. No urinary symptoms. No current diarrhea. No fevers. Has not tried anything for the symptoms prior to arrival. Related Data Home Medications Medication Instructions Recorded Confirmed albuterol sulfate 90 mcg/actuation 2 inh inhalation Q6HR PRN Wheezing 04/19/21 04/19/21 aerosol inhaler fluvoxamine 50 mg tablet 50 mg PO BID 04/19/21 04/19/21 levothyroxine 50 mcg tablet 50 mcg PO QAM 04/19/21 04/19/21 (Synthroid) liothyronine 5 mcg tablet 5 mcg PO BID 04/19/21 04/19/21 Previous Rx's Medication Instructions Recorded alprazolam 0.25 mg tablet 0.25 mg PO Q6H PRN Anxiety #8 tabs 04/26/21 amoxicillin 875 mg-potassium 1 tab PO Q12H 7 days #14 tabs 09/13/22 clavulanate 125 mg tablet Allergies Allergy/AdvReac Type Severity Reaction Status Date / Time cephalexin [From KEFLEX] Allergy Unknown Verified 04/19/21 21:16 erythromycin base Allergy Unknown Verified 04/19/21 13:32 hydrocodone [From Vicodin] Allergy Unknown Verified 04/19/21 13:32 Iodine and Iodide Containing Allergy Unknown Verified 04/19/21 14:53 Produc [IODINE AND IODIDE CONTAINING PRODUC] latex [LATEX] Allergy Unknown Verified 04/19/21 14:53 Review of Systems Constitutional Constitutional: Reports system reviewed and no additional complaints, except as documented Cardiovascular Cardiovascular: Reports system reviewed and no additional complaints, except as documented Respiratory Respiratory: Reports system reviewed and no additional complaints, except as documented Gastrointestinal Gastrointestinal: Reports system reviewed and no additional complaints, except as documented Integumentary/Breasts Skin/Breast: Reports system reviewed and no additional complaints, except as documented Neurologic Neurologic: Reports system reviewed and no additional complaints, except as documented Hematologic/Lymphatic On Anticoagulants: No Patient History Medical History Fibromyalgia Hypothyroid Reactive airway disease Social History household members: spouse and family Smoking Status: Never smoker Smoking Status: Never smoker alcohol intake frequency: 0-2 drinks per day Substance Use Type: does not use Exam Initial Vital Signs Initial Vital Signs: Vital Signs Temperature 97.5 F L 09/13/22 15:13 Pulse Rate 85 09/13/22 15:13 Respiratory Rate 16 09/13/22 15:13 Blood Pressure 179/107 H 09/13/22 15:13 Pulse Oximetry 99 09/13/22 15:13 Oxygen Delivery Method Room Air 09/13/22 15:13 Const General: cooperative and No ill appearing HENMT Head: normal to inspection and normocephalic Resp Effort & Inspection: normal respiratory effort Auscultation: clear to auscultation bilaterally Cardio Rate: regular rate Rhythm: regular rhythm GI Inspection: normal to inspection and non-distended Palpation: soft, No firm and tender Skin General: no rashes or lesions noted Neuro General: patient alert, patient awake, patient oriented x3 and moves all extremities Extrem General: capillary refill normal Course Orders Ordered: ED Orders 09/13/22 18:18 TSH [Thyroid Stimulating Hormone] Stat 09/13/22 18:27 CT abdomen pelvis wo con Stat Discontinued Medications Hydrocodone Bitart/Acetaminophen (Hydrocodone/Acet 5/325 Prepack) 1 bottle MISC SEEINSTR ONE Stop: 09/13/22 19:58 Last Admin: 09/13/22 20:50 Dose: Not Given Documented By: SPF Amoxicillin/Clavulanate Potassium (Amoxicillin/Clav 875/125 Mg) 1 tab PO NOW ONE Stop: 09/13/22 19:58 Last Admin: 09/13/22 20:09 Dose: 1 tab Documented By: SPF Hydromorphone HCl (Hydromorphone 1 Mg Inj) 1 mg IV NOW ONE Stop: 09/13/22 18:28 Last Admin: 09/13/22 18:33 Dose: 1 mg Documented By: SPF Hydromorphone HCl (Hydromorphone 0.5 Mg Inj) 0.5 mg IV NOW ONE Stop: 09/13/22 20:20 Last Admin: 09/13/22 20:23 Dose: 0.5 mg Documented By: SOLOMON Sodium Chloride (Normal Saline 0.9%) 1,000 mls @ 1,000 mls/hr IV BOLUS ONE Stop: 09/13/22 18:03 Last Infusion: 09/13/22 18:54 Dose: 0 mls/hr Documented By: Admin: 09/13/22 17:10 Dose: 1,000 mls/hr Documented By: SOLOMON Metoclopramide HCl (Metoclopramide 10 Mg/2 Ml Inj) 10 mg IV NOW ONE Stop: 09/13/22 17:06 Last Admin: 09/13/22 17:10 Dose: 10 mg Documented By: SOLOMON Ondansetron HCl (Ondansetron 4 Mg Odt) 4 mg PO NOW PRN PRN Reason: Nausea And Vomiting Last Admin: 09/13/22 18:34 Dose: 4 mg Documented By: SOLOMON Ondansetron HCl (Ondansetron 4 Mg/2 Ml Inj) 4 mg IV NOW PRN PRN Reason: Nausea And Vomiting Last Admin: 09/13/22 16:30 Dose: 4 mg Documented By: SOLOMON Ondansetron HCl (Ondansetron 4 Mg Odt Prepack) 1 bottle MISC SEEINSTR ONE Stop: 09/13/22 19:58 Last Admin: 09/13/22 20:09 Dose: 1 bottle Documented By: SOLOMON Ondansetron HCl (Ondansetron 4 Mg/2 Ml Inj) 4 mg IV NOW ONE Stop: 09/13/22 20:20 Last Admin: 09/13/22 20:23 Dose: 4 mg Documented By: SOLOMON Oxycodone/Acetaminophen (Oxycodone/Apap 5/325 Prepack) 1 bottle MISC SEEINSTR ONE Stop: 09/13/22 19:59 Last Admin: 09/13/22 20:09 Dose: 1 bottle Documented By: SOLOMON Vital Signs Vital signs: Vital Signs - 8 hr 09/13/22 18:00 09/13/22 18:00 09/13/22 18:30 Pulse Rate 82 88 Respiratory Rate Blood Pressure 161/95 H Pulse Oximetry 98 99 Oxygen Delivery Method Oxygen Flow Rate 09/13/22 18:31 09/13/22 18:31 09/13/22 18:40 Pulse Rate 97 H Respiratory Rate Blood Pressure 176/109 H 181/112 H Pulse Oximetry 98 Oxygen Delivery Method Oxygen Flow Rate 09/13/22 18:40 09/13/22 18:44 09/13/22 18:44 Pulse Rate 94 H 89 Respiratory Rate Blood Pressure 174/107 H Pulse Oximetry 99 95 Oxygen Delivery Method Oxygen Flow Rate 09/13/22 19:00 09/13/22 19:04 09/13/22 19:04 Pulse Rate 85 86 Respiratory Rate 20 Blood Pressure 175/102 H Pulse Oximetry 98 97 Oxygen Delivery Method Oxygen Flow Rate 09/13/22 19:30 09/13/22 19:30 09/13/22 20:00 Pulse Rate 82 Respiratory Rate Blood Pressure 163/100 H 177/113 H Pulse Oximetry 96 Oxygen Delivery Method Room Air Oxygen Flow Rate 09/13/22 20:00 09/13/22 20:51 09/13/22 20:48 Pulse Rate 81 73 Respiratory Rate 18 16 16 Blood Pressure Pulse Oximetry 100 96 97 Oxygen Delivery Method Room Air Room Air Room Air Oxygen Flow Rate 09/13/22 20:30 09/13/22 20:30 09/13/22 20:39 Pulse Rate 82 75 Respiratory Rate Blood Pressure 181/111 H Pulse Oximetry 99 97 Oxygen Delivery Method Nasal Cannula Oxygen Flow Rate 2 09/13/22 20:39 09/13/22 20:52 Pulse Rate 74 Respiratory Rate 16 Blood Pressure 166/106 H 166/106 H Pulse Oximetry 99 Oxygen Delivery Method Room Air Oxygen Flow Rate Medical Decision Making Medical Records Medical records reviewed: Yes I reviewed the patient's medical records. Lab Data Lab results reviewed: Yes I reviewed the patient's lab results. 09/13/22 15:28 09/13/22 15:28 Labs: Lab Results 09/13/22 09/13/22 09/13/22 Range/Units 15:24 15:24 15:24 WBC (4.5-11.0) X10^3/uL RBC (4.0-5.2) X10^6/uL Hgb (12.0-16.0) g/dL Hct (36-46) % MCV (80-100) fL MCH (26-34) PG MCHC (30-36) % RDW (11.6-14.8) % Plt Count (150-400) X10^3/uL Neut % (Auto) (50-75) % Lymph % (Auto) (25-40) % [place] % (Auto) (3-14) % Eos % (Auto) (2-4) % Baso % (Auto) (0-2) % Neut # (Auto) (1524-3715) /uL Lymph # (Auto) (5781-8224) /uL [place] # (Auto) (0-900) /uL Eos # (Auto) (0-450) /uL Baso # (Auto) (0-100) /uL Sodium (137-145) mmol/L Potassium (3.4-5.1) mmol/L Chloride (98-107) mmol/L Carbon Dioxide (22-32) mmol/L BUN (7-17) mg/dL Creatinine (0.52-1.04) mg/dL Estimated GFR (>60) mL/min BUN/Creatinine Ratio (6-22) Glucose (70-100) mg/dL Calcium (8.4-10.2) mg/dL Total Bilirubin (0.2-1.3) mg/dL AST (14-36) IU/L ALT (<35) IU/L Alkaline Phosphatase (38-126) U/L Total Protein (6.3-8.2) g/dL Albumin (3.5-5.0) g/dL Globulin (1.7-4.1) g/dL Albumin/Globulin Ratio (1.0-2.8) Lipase (23-300) U/L TSH (0.47-4.68) uIU/mL Urine Color Yellow Urine Appearance Slightly cloudy Urine pH 7.5 (4.5-8.0) Ur Specific [place] 1.015 (1.000-1.035) Urine Protein Negative (Negative) Urine Glucose (UA) Negative (Negative) g/dL Urine Ketones 1+ H (NEGATIVE) Urine Occult Blood Negative (Negative) Urine Nitrate Negative (Negative) Urine Bilirubin Negative (NEGATIVE) Urine Urobilinogen 0.2 (0.2) E.U./dL Ur Leukocyte Esterase Negative (NEGATIVE) Urine Test Negative (Negative) Stl C. cayetanensis PCR Not detected (Not Detect) Stool Rotavirus (PCR) Not detected (Not Detect) Stool Adenovirus (PCR) Not detected (Not Detect) Stool Astrovirus (PCR) Not detected (Not Detect) Stool Cryptosporidium PCR Not detected (Not Detect) Stl E.coli Shiga Tox PCR Not detected (Not Detect) St Sh/Enteroin Ecoli PCR Not detected (Not Detect) Stool E coli O157 PCR Not Reportable Stl Enterotoxigenic E PCR Not detected (Not Detect) Stool EPEC (PCR) Not detected (Not Detect) Stl E. histolytica PCR Not detected (Not Detect) Stool Giardia Lamblia PCR Not detected (Not Detect) Stool Sapovirus (PCR) Not detected (Not Detect) Stl P. shigelloides PCR Not detected (Not Detect) St Y.enterocolitica PCR Not detected (Not Detect) Stool Vibrio (PCR) Not detected (Not Detect) Stl Vibrio cholerae PCR Not detected (Not Detect) Stl Enteroaggr Ecoli PCR Not detected (Not Detect) Stl Norovirus GI/GII PCR Not detected (Not Detect) Campylobacter (PCR) Not detected (Not Detect) C. difficile Tox (PCR) Not detected (Not Detect) Salmonella (PCR) Not detected (Not Detect) 09/13/22 09/13/22 09/13/22 Range/Units 15:28 15:28 18:18 WBC 9.8 (4.5-11.0) X10^3/uL RBC 4.45 (4.0-5.2) X10^6/uL Hgb 14.0 (12.0-16.0) g/dL Hct 40.4 (36-46) % MCV 90.9 (80-100) fL MCH 31.5 (26-34) PG MCHC 34.7 (30-36) % RDW 12.5 (11.6-14.8) % Plt Count 334 (150-400) X10^3/uL Neut % (Auto) 82.2 H (50-75) % Lymph % (Auto) 9.6 L (25-40) % [place] % (Auto) 7.4 (3-14) % Eos % (Auto) 0.2 L (2-4) % Baso % (Auto) 0.6 (0-2) % Neut # (Auto) 8100 H (0893-9937) /uL Lymph # (Auto) 900 L (5423-9191) /uL [place] # (Auto) 700 (0-900) /uL Eos # (Auto) 0 (0-450) /uL Baso # (Auto) 100 (0-100) /uL Sodium 136 L (137-145) mmol/L Potassium 3.9 (3.4-5.1) mmol/L Chloride 100 (98-107) mmol/L Carbon Dioxide 25 (22-32) mmol/L BUN 12 (7-17) mg/dL Creatinine 0.70 (0.52-1.04) mg/dL Estimated GFR > 60 (>60) mL/min BUN/Creatinine Ratio 17.1 (6-22) Glucose 108 H (70-100) mg/dL Calcium 9.0 (8.4-10.2) mg/dL Total Bilirubin 0.3 (0.2-1.3) mg/dL AST 29 (14-36) IU/L ALT 28 (<35) IU/L Alkaline Phosphatase 88 (38-126) U/L Total Protein 7.8 (6.3-8.2) g/dL Albumin 4.5 (3.5-5.0) g/dL Globulin 3.3 (1.7-4.1) g/dL Albumin/Globulin Ratio 1.4 (1.0-2.8) Lipase 60 (23-300) U/L TSH 0.027 L (0.47-4.68) uIU/mL Urine Color Urine Appearance Urine pH (4.5-8.0) Ur Specific [place] (1.000-1.035) Urine Protein (Negative) Urine Glucose (UA) (Negative) g/dL Urine Ketones (NEGATIVE) Urine Occult Blood (Negative) Urine Nitrate (Negative) Urine Bilirubin (NEGATIVE) Urine Urobilinogen (0.2) E.U./dL Ur Leukocyte Esterase (NEGATIVE) Urine Test (Negative) Stl C. cayetanensis PCR (Not Detect) Stool Rotavirus (PCR) (Not Detect) Stool Adenovirus (PCR) (Not Detect) Stool Astrovirus (PCR) (Not Detect) Stool Cryptosporidium PCR (Not Detect) Stl E.coli Shiga Tox PCR (Not Detect) St Sh/Enteroin Ecoli PCR (Not Detect) Stool E coli O157 PCR Stl Enterotoxigenic E PCR (Not Detect) Stool EPEC (PCR) (Not Detect) Stl E. histolytica PCR (Not Detect) Stool Giardia Lamblia PCR (Not Detect) Stool Sapovirus (PCR) (Not Detect) Stl P. shigelloides PCR (Not Detect) St Y.enterocolitica PCR (Not Detect) Stool Vibrio (PCR) (Not Detect) Stl Vibrio cholerae PCR (Not Detect) Stl Enteroaggr Ecoli PCR (Not Detect) Stl Norovirus GI/GII PCR (Not Detect) Campylobacter (PCR) (Not Detect) C. difficile Tox (PCR) (Not Detect) Salmonella (PCR) (Not Detect) Imaging Data CT scan - abdomen/pelvis: Radiologist's Impression: PROCEDURE:? CT ABDOMEN PELVIS WO CON ? INDICATIONS:? Generalized abdominal pain with distention ? TECHNIQUE:? Noncontrast 5 mm thick sections acquired from the diaphragms to the symphysis.? 5 mm coronal and sagittal reformats were then performed.? For radiation dose reduction, the following was used:? automated exposure control, adjustment of mA and/or kV according to patient size.? ? COMPARISON:? None. ? FINDINGS:? Image quality:? Excellent.? ? ABDOMEN:? Lung bases: Scattered bibasilar ground-glass opacities may be secondary to hypoinflation. ?Stable right middle lobe subpleural scar or ground-glass nodule.? No pleural effusion.? Normal size heart.? Tiny hiatal hernia. ? Solid organs:? Normal size liver with slight steatosis.? No visible mass.? Normal gallbladder without calcifications.? No visible biliary dilatation.? Normal pancreas, spleen, adrenal glands, and kidneys.? No ureteral dilatation. ? Peritoneum and bowel:? There is decompression and mild inflammation involving the sigmoid colon for of fairly long segment.? There is a questionable partially exophytic nodular diverticulum arising cranially seen on the coronal image 40/4.? Proximal to this, there is liquid stool throughout the colon and air-fluid levels.? Stomach and small bowel loops are decompressed. ? Nodes and vessels:? No retroperitoneal or mesenteric adenopathy by size criteria.? Aorta and inferior vena cava are normal in caliber.? ? Miscellaneous:? No ventral hernias.? ? ? PELVIS:? Genitourinary:? The uterus is anteverted and retroflexed.? There are scattered calcifications and a lobulated margin suggesting uterine fibroids.? Ovaries are not well seen on CT.? The urinary bladder is partially decompressed. ? Miscellaneous:? No inguinal hernias or adenopathy.? ? Bones:? Bilateral L5 pars defects.? Severe L5-S1 disc height loss and grade 1 anterolisthesis. ? IMPRESSION:? ? 1. Probably partially obstructing inflammatory change in the sigmoid colon for which differential diagnosis includes diverticulitis, infectious colitis, less likely neoplasm. ?Colonoscopy is recommended after acute illness resolves. ? 2. Mild hepatic steatosis. ? 3. Probable fibroid uterus.? ECG Data Attestation: I personally reviewed and interpreted this ECG as follows: Interpretation: Sinus rhythm Ventricular rate is 78 Normal axis Normal QRS Normal QTC No ST T wave changes MDM Narrative Medical decision making narrative: Patient was able to tolerate oral intake. CT scan has findings that are consistent with colitis and potentially diverticulitis. I did discuss this with the patient. Because of this we will start her on antibiotics. No indication for surgical consultation. She was given 1st dose here in the emergency department a prescription was sent to the pharmacy of her choice. She was given return precautions. She expressed understanding and agreement. Discharge Plan Departure Patient Disposition: Home Clinical Impression: Colitis Instructions: DI for Colitis Activity Restrictions/Additional Instructions: I do recommend that you take the antibiotics as directed. Use the nausea medication and pain medication like we discussed. It is important that you contact your primary doctor for a follow-up to discuss a routine colonoscopy. Return to the emergency department for new or worsening symptoms. Prescriptions: New amoxicillin-pot clavulanate 875-125 mg tablet 1 tab PO Q12H 7 Days Qty: 14 0RF No Action liothyronine 5 mcg tablet 5 mcg PO BID Patient Comments: TAKE 1 TABLET BY MOUTH TWICE DAILY levothyroxine [Synthroid] 50 mcg tablet 50 mcg PO QAM fluvoxamine 50 mg tablet 50 mg PO BID Patient Comments: TAKE 1 TABLET BY MOUTH TWICE DAILY FOR 10 DAYS Rx Instructions: for post viral syndrome started 04/11 x 14 days albuterol sulfate 90 mcg/actuation HFA aerosol inhaler 2 inh INHALATION Q6HR PRN (Reason: Wheezing) Patient Comments: INHALE 1 PUFF INTO THE LUNGS EVERY 4 HOURS NEEDED alprazolam 0.25 mg Tablet 0.25 mg PO Q6H PRN (Reason: Anxiety) Qty: 8 0RF Referrals: Rhea Newsome ARNP [Primary Care Provider] - Stand Alone Forms: Patient Portal/API
[2022-09-13] MEDS: HYDROMORPHONE 1 MG INJ IV (18:33)
[2022-09-13] MEDS: ONDANSETRON 4 MG ODT PO (18:34)
[2022-09-13 19:10] LABS: Thyroid Stimulating Hormone 0.027 uIU/mL (0.47-4.68)
[2022-09-13] MEDS: ONDANSETRON 4 MG ODT PREPACK 1 BOTTLE MISC (20:09)
[2022-09-13] MEDS: OXYCODONE/APAP 5/325 PREPACK 1 BOTTLE MISC (20:09)
[2022-09-13] MEDS: AMOXICILLIN/CLAV 875/125 MG 1 TAB PO (20:09)
[2022-09-13] MEDS: HYDROMORPHONE 0.5 MG INJ IV (20:23)
== END 2022-09-13 20:55 | disposition home or self-care (01) ==
PROVIDERS: Emergency Medicine; Emergency Provider Emergency Medicine; Family Provider Acupuncturist; PCP Nurse Practitioner Family
DX: K52.9 Noninfective gastroenteritis and colitis, unspecified (principal); R10.84 Generalized abdominal pain; R11.0 Nausea
CPT/HCPCS: 36415; 51798; 74176; 80053; 81003; 81025; 83690; 84443; 85025; 87507; 93005; 96361; 96374; 96375; 96376; 99284; J1170; J2405; J2765